=== PATIENT | male | born 2000 | race Caucasian/White ===

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

== ENCOUNTER 2022-01-19 11:51 | Emergency (ER) | payer OTHER, SELFPAY ==
--- NOTE | 2022-01-19 12:20 | HMH.EDUTC ---
[facility] [place] Disposition Clinical Impression: Cellulitis of great toe, left Disposition: Home, Self-Care Condition on Discharge: Good Instructions: Cellulitis Additional Instructions: Rest the extremity, Elevate the extremity as tolerated while you are resting. Take ibuprofen for pain. I sent in a prescription to your pharmacy. Follow up with Dr. Puente (podiatry) for a recheck of your toe. I put in a referral but you need to call her office and schedule an appointment. Follow up with your regular doctor. GO TO THE ER FOR ANY WORSENING SYMPTOMS Prescriptions: Mupirocin [Bactroban 2% Ointment 22gm tube] 1 applicatio TP TID 7 Days #1 gm Transmission Status: Received by [facility] cephALEXin [cephALEXin 500mg capsule] 500 mg PO Q6H 10 Days #40 cap Transmission Status: Received by [facility] Referrals: Emmanuel Humphrey MD [Primary Care Provider] - Forms: Work/School Release Time of Disposition: 12:48 Medical Decision Making - Medical Records Medical records reviewed: No: I reviewed the patient's medical records. - Keven Inquiry Pt receiving controlled substance: No Vital Signs: 01/19/22 12:22 01/19/22 12:53 Temperature 98.6 F 98.6 F Temperature Source Oral Pulse Rate 69 Pulse Rate [Left] 69 Respiratory Rate 16 16 Blood Pressure 119/69 Blood Pressure [Right Arm] 119/69 Blood Pressure Mean [Right Arm] 85 02 Sat by Pulse Oximetry 99 [facility] [place] HPI - General Stated complaint: possible infected left big toe Time Seen by Provider: 01/19/22 12:20 - History of Present Illness Provider Complaint: He states that for the past 1 week he has had left great toe pain and swelling. He originally had an ingrown nail there that was removed by podiatry (Dr. Puente) about 2 months ago. He states that he did fine after the toe nail removal, until he began having his current episode of symptoms. - Related Data Home Medications Medication Instructions Recorded Confirmed montelukast 10 mg tablet 10 mg PO #30 tab 11/01/18 12/09/21 ketotifen fumarate 0.025 % (0.035 drp OPHTHALMIC 10/25/20 12/09/21 %) eye drops levocetirizine 5 mg tablet 5 mg PO DAILY tab 10/25/20 12/09/21 sertraline 50 mg tablet 50 mg PO tab 12/09/21 12/09/21 Previous Rx's Medication Instructions Recorded bupropion HCl 150 mg 24 hr tablet, 150 mg PO DAILY #30 tab 12/01/21 extended release hydroxyzine pamoate 25 mg capsule 25 mg PO DAILY #30 cap 12/01/21 mupirocin 2 % topical ointment 1 applic TP BID 21 Days #15 g 12/09/21 Ondansetron [Zofran 4mg ODT] 4 mg PO TIDP PRN #12 tab 12/25/21 Mupirocin [Bactroban 2% Ointment 1 applicatio TP TID 7 Days #1 gm 01/19/22 22gm tube] cephALEXin [cephALEXin 500mg 500 mg PO Q6H 10 Days #40 cap 01/19/22 capsule] Allergies Allergy/AdvReac Type Severity Reaction Status Date / Time No Known Allergies Allergy Verified 01/19/22 12:25 [facility] History - Hepatitis A Screen Attestation statement:: This patient has been screened for Hepatitis A risk factors. I have reviewed the patient's past medical history: Yes 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: Reports:: Anxiety, Asthma, Depression Denies:: Diabetes Mellitus Type 1, Diabetes Mellitus Type 2, MRSA Other 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: Reports: Sinus Problems Comment: ADHD Other Surgeries: Yes: No Previous Surgery Amputation: No Fractures: No - Social History Smoking Status: Never smoker Alcohol Intake: never Alcohol Intake Frequency:: 0-2 drinks per day Substance Use Type: denies use Occupational Status: other Household Members: family - Psychiatric History Pschychiatric History:: Reports:: Anxiety, Attention Deficit Disorder, Depression Family Hx:: Diabetes ROS Obtained: Yes All systems reviewed & no additional complaints - Constitutional Constitutional: Denies chills, Denies fever(s), Denies poor appetite, Denies malaise - Musculoskeletal Musculoskeletal: Denies joint pain - Integumentary/Breasts Skin/Breast: Re
[2022-01-19 12:22] VITALS: BP 119/69; PULSE 69; RESP 16; TEMP 37; O2SAT 99; BMI 16.9
[2022-01-19 12:53] VITALS: BP 119/69; PULSE 69; RESP 16; TEMP 37
== END 2022-01-19 12:54 | disposition home or self-care (01) ==
PROVIDERS: Emergency Provider Nurse Practitioner Family; PCP Emergency Medicine
DX: M79.675 Pain in left toe(s) (principal); L03.032 Cellulitis of left toe; J45.909 Unspecified asthma, uncomplicated; F98.8 Other specified behavioral and emotional disorders with onset usually occurring in childhood and adolescence; F32.A Depression, unspecified; F41.9 Anxiety disorder, unspecified; Z83.3 Family history of diabetes mellitus
CPT/HCPCS: 99213; G0463

== ENCOUNTER 2022-03-27 16:01 | Emergency (ER) | payer OTHER, SELFPAY ==
[2022-03-27 17:16] VITALS: BP 127/71; PULSE 81; RESP 18; TEMP 36.6; O2SAT 99; BMI 18.3
--- NOTE | 2022-03-27 17:27 | EXP.UTC ---
Discharge Plan Disposition Patient Disposition: Home, Self-Care Condition: Good Prescriptions Prescriptions: New methocarbamol 500 mg tablet 500 mg PO TID PRN (Reason: muscle spasm) Qty: 15 0RF No Action montelukast 10 mg tablet 10 mg PO Qty: 30 levocetirizine 5 mg tablet 5 mg PO DAILY ketotifen fumarate 0.025 % (0.035 %) drops OPHTHALMIC mupirocin 2 % ointment 1 applic TP BID 21 Days Qty: 15 1RF Rx Instructions: Apply to affected area up to twice daily ondansetron 4 MG tablet,disintegrating 4 mg PO TIDP PRN (Reason: Nausea) Qty: 12 0RF mupirocin 22 GM ointment 1 applicatio TP TID 7 Days Qty: 1 0RF Referrals Follow up/Referrals: Emmanuel Humphrey MD [Primary Care Provider] - See instructions Activity Restrictions/Add. Instructions Additional Instructions/Restrictions: *Ibuprofen odalis 6 hours with meal as needed for pain/inflammation *Not additional anti-inflammatory like motrin, aleve, advil with the above amount of ibuprofen. You can still take Tylenol every 4 hours as needed if you need something else for pain *Ice 20 minutes every 2 hours for the first 48 hours after the initial injury followed by moist heat every 20 minutes 3-4 times a day to affected area *Muscle relaxer every 8 hours as needed for muscle spasms but remember, it WILL cause drowsiness You cannot take it and drive, operate machinery or care for small children. *Keep this area active, no movement leads to more stiffness, However take it easy and avoid heavy lifting pushing or pulling *Follow up with you family doctor if no improvement for further treatment Clinical Impressions Clinical Impression: Muscle spasm Instructions Patient Instructions: DI for Muscle Spasm, Methocarbamol Discharge ED Provider: Purvi Vasques [facility] General Stated complaint: AO@03/27 @1200 BACK PAIN Mode of Arrival: Ambulatory Source of Information: Patient and Parent(s) Limitations: No Limitations Time Seen by Provider: 03/27/22 17:27 Description of Symptoms (Recalled from Triage Doc. by RN): pt comes in with c/o lower right side back pain. since this am. 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 and started having spasms in the right side of his lower back Denies known injury State that spasms have continued throughout the day and not improved since he got off work Denies loss of control of bowel or bladder Related Data Home Medications Medication Instructions Recorded Confirmed montelukast 10 mg tablet 10 mg PO #30 tabs 11/01/18 12/09/21 ketotifen fumarate 0.025 % (0.035 drp ophthalmic (eye) 10/25/20 12/09/21 %) eye drops levocetirizine 5 mg tablet 5 mg PO DAILY 10/25/20 12/09/21 Previous Rx's Medication Instructions Recorded mupirocin 2 % topical ointment 1 applic topical BID cellulitis 3 12/09/21 weeks #15 grams ondansetron 4 mg disintegrating 4 mg PO TIDP PRN Nausea #12 tabs 12/25/21 tablet mupirocin 2 % topical ointment 1 applicatio topical TID 7 days #1 01/19/22 g methocarbamol 500 mg tablet 500 mg PO TID PRN muscle spasm #15 03/27/22 tabs Allergies Allergy/AdvReac Type Severity Reaction Status Date / Time No Known Allergies Allergy Verified 03/27/22 17:19 Worker's Comp Is this a Worker's Comp case?: No PFSH PFSH Social History Smoking Status: Never smoker alcohol intake: never substance use type: denies use current occupational status: other Travel in the last 8 weeks: None household members: family number of children: 0 ROS Obtained: Yes All syst
[2022-03-27 17:52] VITALS: BP 127/71; PULSE 81; RESP 18; TEMP 36.6
== END 2022-03-27 17:54 | disposition home or self-care (01) ==
PROVIDERS: Emergency Provider Nurse Practitioner; PCP Emergency Medicine
DX: M62.830 Muscle spasm of back (principal)
CPT/HCPCS: 99212; G0463

== ENCOUNTER 2022-04-29 19:20 | Emergency (ER) | payer OTHER, SELFPAY ==
[2022-04-29 20:25] VITALS: BP 131/70; PULSE 68; RESP 18; TEMP 36.9; O2SAT 99; BMI 17.6
[2022-04-29 20:34] LABS: UTC Influenza A Antigen Negative (Negative)
[2022-04-29 20:35] LABS: UTC Influenza B Antigen Negative (Negative)
--- NOTE | 2022-04-29 20:35 | EXP.UTC ---
Discharge Plan Disposition Patient Disposition: Home, Self-Care Condition: Good Prescriptions Prescriptions: New ondansetron 4 mg tablet,disintegrating 4 mg PO Q8H PRN (Reason: nausea and vomiting) Qty: 10 0RF [id number]-fchlgseay-[id number] [Bromfed DM] 2-30-10 mg/5 mL Syrup 10 ml PO Q4H PRN (Reason: Cough) Qty: 240 0RF Referrals Follow up/Referrals: Emmanuel Humphrey MD [Primary Care Provider] - See instructions Activity Restrictions/Add. Instructions Additional Instructions/Restrictions: *Monitor Temp, Over the counter Motrin or Tylenol as directed/as needed Tylenol every 4 hours and Motrin every 6 hours (as long as your family doctor has told you that you can take it) for fever or pain. and straight to ER if unable to lower temp less than 101.0 after medication given *Warm salt water gargles may help to soothe the throat *Throat Lozenges? *Warm fluids like tea with honey may help to soothe the throat? *Sleep elevated *Humidifier/Vaporizer *Bromfed may cause drowsiness. Know how it effects you (your child) before driving, caring for small child, or sending your child to school. Not other antihistamines/allergy medications while taking bromfed Follow up IMMEDIATELY for new or worsening symptoms or no Noticeable improvement over the next 48-72 hours. 911 for difficulty breathing or swallowing Clinical Impressions Clinical Impression: Viral syndrome Stand Alone Forms Stand Alone Forms: Work/School Release Instructions Patient Instructions: DI for Viral Syndrome Discharge ED Provider: Purvi Vasques [facility] General Stated complaint: body aches,stomach pain,nausea,lip pain Mode of Arrival: Ambulatory Source of Information: Patient Limitations: No Limitations Time Seen by Provider: 04/29/22 20:35 Description of Symptoms (Recalled from Triage Doc. by RN): PATIENT C/O BODY ACHES, RUNNY NOSE, AND COUGH X 2 DAYS HEENT Symptoms (Recalled from RN notes): Yes Resp Symptoms (Recalled from RN notes): Yes Skin Symptoms (Recalled from RN notes): No MS Symptoms (Recalled from RN notes): No Functional Status (Recalled from RN notes): WNL History of Present Illness Provider Complaint: Patient states that he hasnt felt well for a couple of days having nausea, cough, nasal congestion body aches and chills State that this morning he was feeling achy and this evening he had a low grade fever States that flu is going around and he was worried he may have it Related Data Previous Rx's Medication Instructions Recorded arhyyrnaypqqdwt-jknrqvmvpemlipi-GS 10 ml PO Q4H PRN Cough #240 mL 04/29/22 2 mg-30 mg-10 mg/5 mL oral syrup (Bromfed DM) ondansetron 4 mg disintegrating 4 mg PO Q8H PRN nausea and 04/29/22 tablet vomiting #10 tabs Allergies Allergy/AdvReac Type Severity Reaction Status Date / Time No Known Allergies Allergy Verified 03/27/22 17:19 Worker's Comp Is this a Worker's Comp case?: No PFSH PFSH 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 (Updated 04/29/22 @ 20:44 by Purvi Vasques APRN) Anxiety Asthma Depression Social History (Updated 04/29/22 @ 20:35 by Sonya Batista RN) Smoking Status: Never smoker alcohol intake: never substance use type: denies use current occupational status: other Travel in the last 8 weeks: None household members: family number of children: 0 ROS Obtained: Yes All systems reviewed & no additional complaints except as documented and Yes Systems reviewed as appropriate & no additional complaints except as documented Constitutional Constitutional: Reports system reviewed and no additional complaints, except as documented, Reports as per HPI, Reports body ache and Reports chills ENT Ears, Nose, Mouth, and Throat: Reports system reviewed and no additional complaints, except as documented, Reports as per HPI, Reports nasal congestion and Reports nasal discharge Cardiovascular Cardiovascular: Reports system reviewed and no additional complaints, e
[2022-04-29 20:47] VITALS: BP 131/70; PULSE 68; RESP 18; TEMP 36.9; O2SAT 99
== END 2022-04-29 20:49 | disposition home or self-care (01) ==
PROVIDERS: Emergency Provider Nurse Practitioner; PCP Emergency Medicine
DX: R11.2 Nausea with vomiting, unspecified (principal); R10.9 Unspecified abdominal pain; R05.9 Cough, unspecified; S00.501A Unspecified superficial injury of lip, initial encounter; M79.10 Myalgia, unspecified site; R51.9 Headache, unspecified; J45.909 Unspecified asthma, uncomplicated; F32.A Depression, unspecified; F41.1 Generalized anxiety disorder; Z79.899 Other long term (current) drug therapy
CPT/HCPCS: 87804; 99213; G0463

== ENCOUNTER 2022-05-19 13:00 | Emergency (ER) | payer OTHER, SELFPAY ==
[2022-05-19 15:15] VITALS: BP 128/76; PULSE 78; RESP 19; TEMP 36.6; O2SAT 100; BMI 17.9
--- NOTE | 2022-05-19 15:32 | EXP.UTC ---
Discharge Plan Disposition Patient Disposition: Home, Self-Care Condition: Good Prescriptions Prescriptions: New azithromycin [Zithromax Z-Escobar] 250 mg tablet See Rx Instructions .ROUTE .COMPLEX 5 Days Qty: 6 0RF Rx Instructions: For 250 mg dose pack: take 500 mg today (day 1), then 250 mg for 4 days (days 2-5) benzonatate 100 mg capsule 100 mg PO TID PRN (Reason: cough) Qty: 15 0RF Referrals Follow up/Referrals: Emmanuel Humphrey MD [Primary Care Provider] - See instructions Activity Restrictions/Add. Instructions Additional Instructions/Restrictions: *Monitor Temp, Over the counter Motrin or Tylenol as directed/as needed Tylenol every 4 hours and Motrin every 6 hours (as long as your family doctor has told you that you can take it) for fever or pain. and straight to ER if unable to lower temp less than 101.0 after medication given *Warm salt water gargles may help to soothe the throat *Throat Lozenges? *Warm fluids like tea with honey may help to soothe the throat? *Sleep elevated *Humidifier/Vaporizer *Bromfed may cause drowsiness. Know how it effects you (your child) before driving, caring for small child, or sending your child to school. Not other antihistamines/allergy medications while taking bromfed Your throat swab was sent for culture. Those results are typically sent to your primary care. Be sure to follow up in 2-3 days with your family doctor/primary care physician if no improvement so they can review those result and treat if necessary. If you don?t have a primary care doctor, I recommend you get one but in the mean time, you will have to return to a walk in clinic Follow up IMMEDIATELY for new or worsening symptoms or no Noticeable improvement over the next 48-72 hours. 911 for difficulty breathing or swallowing Clinical Impressions Clinical Impression: URI (upper respiratory infection) Stand Alone Forms Stand Alone Forms: Work/School Release Instructions Patient Instructions: DI for Sinusitis, Sore Throat Discharge ED Provider: Purvi Vasques [facility] [place] HPI General Stated complaint: fever, MCCONNELL, congestion, sore throat, runny nose Mode of Arrival: Ambulatory Source of Information: Patient and Parent(s) Limitations: No Limitations Time Seen by Provider: 05/19/22 15:33 Description of Symptoms (Recalled from Triage Doc. by RN): PATIENT C/O SORE THROAT, FEVER, CONGESTION, HEADACHE AND SNEEZING SINCE WEDNESDAY HEENT Symptoms (Recalled from RN notes): Yes Resp Symptoms (Recalled from RN notes): No Skin Symptoms (Recalled from RN notes): No MS Symptoms (Recalled from RN notes): No Functional Status (Recalled from RN notes): WNL History of Present Illness Provider Complaint: Patient states that he has been having sore throat sinus congestion and pressure and cough since last Wednesday but got worse in the last couple of days states that today his throat was hurting worse so he came in Related Data Previous Rx's Medication Instructions Recorded azithromycin 250 mg tablet See Rx Instructions PO .COMPLEX 5 05/19/22 (Zithromax Z-Escobar) days #6 tabs benzonatate 100 mg capsule 100 mg PO TID PRN cough #15 caps 05/19/22 Allergies Allergy/AdvReac Type Severity Reaction Status Date / Time No Known Allergies Allergy Verified 05/09/22 14:52 Worker's Comp Is this a Worker's Comp case?: No [facility] Disclaimer: The information contained in this section may have been updated after the patient was seen, as this information can be updated by other users. 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 (Updated 05/19/22 @ 15:51 by Purvi Vasques APRN) Anxiety Asthma Depression Generalized anxiety disorder Social History (Updated 05/19/22 @ 15:30 by Sonya Batista RN) Smoking Status: Never smoker alcohol intake: never substance use type: denies use current occupational status: other Travel in the last 8 weeks: None household members: family number of children: 0 ROS Obtain
[2022-05-19 15:52] VITALS: BP 128/76; PULSE 78; RESP 19; TEMP 36.6; O2SAT 100
== END 2022-05-19 16:00 | disposition home or self-care (01) ==
PROVIDERS: Emergency Provider Nurse Practitioner; PCP Emergency Medicine
DX: J06.9 Acute upper respiratory infection, unspecified (principal)
CPT/HCPCS: 99212

== ENCOUNTER → 2022-06-12 14:11 | Outpatient (CLI) | payer OTHER, SELFPAY | PROVIDERS: PCP Student in an Organized Health Care Education/Training Program; Visit Provider Student in an Organized Health Care Education/Training Program | DX: U07.1 COVID-19 (principal); R11.2 Nausea with vomiting, unspecified; J02.9 Acute pharyngitis, unspecified | CPT/HCPCS: 87070; C9803; U0003; U0005 ==

== ENCOUNTER 2023-05-11 13:30 | Emergency (ER) | payer OTHER, SELFPAY ==
--- NOTE | 2023-05-11 14:19 | EXP.UTC ---
Discharge Plan Disposition Patient Disposition: Home, Self-Care Condition: Good Prescriptions Prescriptions: New azithromycin [Zithromax] 250 mg tablet 250 mg PO UD DOSE PK Qty: 6 0RF Rx Instructions: Take two (2) tablets today, then one (1) tablet days #2 thru #5 [id number]-geederwyk-LG [Bromfed DM] 2-30-10 mg/5 mL Syrup 5 ml PO Q6H PRN (Reason: Cough) Qty: 240 0RF prednisone 10 mg tablet 10 mg PO BID 4 Days Qty: 8 0RF azithromycin [Zithromax] 250 mg tablet 250 mg PO UD DOSE PK Qty: 6 0RF Rx Instructions: Take two (2) tablets today, then one (1) tablet days #2 thru #5 cjhnfayasduozbu-xtrojmfan-IB [Bromfed DM] 2-30-10 mg/5 mL Syrup 5 ml PO Q6H PRN (Reason: Cough) Qty: 240 0RF Referrals Follow up/Referrals: Provider,Referral, MD [Primary Care Provider] - See instructions Activity Restrictions/Add. Instructions Additional Instructions/Restrictions: Drink plenty of fluids. Take tylenol or ibuprofen for pain or fever. Take the medications as directed. Follow up with your regular doctor. GO TO THE ER FOR ANY WORSENING SYMPTOMS Clinical Impressions Clinical Impression: Pharyngitis, Acute viral syndrome Stand Alone Forms Stand Alone Forms: Work/School Release Instructions Patient Instructions: DI for Pharyngitis/Tonsillopharyngitis -- Child, DI for Viral Syndrome Discharge ED Provider: Simon Uriostegui [facility] General Stated complaint: sore throat,losing voice,cough Time Seen by Provider: 05/11/23 14:19 History of Present Illness Provider Complaint: He states that for the past 2 days he has had scratchy throat, chills, body aches and low grade fever. Related Data Previous Rx's Medication Instructions Recorded azithromycin 250 mg tablet 250 mg PO UD DOSE PK #6 tabs 05/11/23 (Zithromax) azithromycin 250 mg tablet 250 mg PO UD DOSE PK #6 tabs 05/11/23 (Zithromax) dkbdjevlxrrjvss-buwwdqhnzpgrxlc-SE 5 ml PO Q6H PRN Cough #240 mL 05/11/23 2 mg-30 mg-10 mg/5 mL oral syrup (Bromfed DM) auchcodyttuiexi-axnlrhfpiabqotd-OP 5 ml PO Q6H PRN Cough #240 mL 05/11/23 2 mg-30 mg-10 mg/5 mL oral syrup (Bromfed DM) prednisone 10 mg tablet 10 mg PO BID 4 days #8 tabs 05/11/23 Allergies Allergy/AdvReac Type Severity Reaction Status Date / Time No Known Allergies Allergy Verified 05/11/23 14:29 [facility] Disclaimer: The information contained in this section may have been updated after the patient was seen, as this information can be updated by other users. 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 (Updated 05/11/23 @ 14:42 by Simon Uriostegui APRN) Anxiety Asthma Depression Generalized anxiety disorder Social History Smoking Status: Never smoker alcohol intake: never substance use type: denies use current occupational status: other Travel in the last 8 weeks: None household members: family number of children: 0 ROS Obtained: Yes All systems reviewed & no additional complaints except as documented Constitutional Constitutional: Reports chills and Reports fever(s) Eyes Eyes: Denies eye discharge ENT Ears, Nose, Mouth, and Throat: Reports as per HPI Cardiovascular Cardiovascular: Denies chest pain Respiratory Respiratory: Denies chest congestion and Reports cough Gastrointestinal Gastrointestingal: Reports nausea; Denies abdominal pain, constipation, cramping, diarrhea or vomiting Musculoskeletal Musculoskeletal: Denies arthralgias Integumentary/Breasts Skin/Breast: Denies rash Neurologic Neurologic: Denies paresthesias Physical Exam General General appearance: alert and in no apparent distress Head Head exam: atraumatic, normocephalic and normal inspection Eye Eye exam: Present normal appearance, PERRL and EOMI ENT ENT exam: Present mucous membranes moist and normal external ear exam Expanded ENT Exam TM/Canal exam: Bilateral TM: erythema and bulging Nose exam: Absent sinus tenderness Mout
[2023-05-11 14:20] VITALS: BP 125/84; PULSE 77; RESP 18; TEMP 37.2; O2SAT 99; BMI 17.5
[2023-05-11 14:49] LABS: UTC Strep Screen (Rapid) Negative (Negative)
[2023-05-11 15:00] VITALS: BP 125/84; PULSE 77; RESP 18; TEMP 37.2; O2SAT 99
== END 2023-05-11 15:00 | disposition home or self-care (01) ==
PROVIDERS: Emergency Provider Nurse Practitioner Family
DX: J02.9 Acute pharyngitis, unspecified (principal); R05.9 Cough, unspecified; R50.9 Fever, unspecified; B34.9 Viral infection, unspecified; J45.909 Unspecified asthma, uncomplicated
CPT/HCPCS: 87880; 99212; 99214; G0463

== ENCOUNTER 2023-06-30 16:21 | Emergency (ER) | payer OTHER, SELFPAY ==
[2023-06-30 16:35] VITALS: BP 131/80; PULSE 90; RESP 18; TEMP 36.7; O2SAT 98; BMI 17.3
--- NOTE | 2023-06-30 16:40 | EXP.UTC ---
Discharge Plan Disposition Patient Disposition: Home, Self-Care Condition: Good Prescriptions Prescriptions: No Action spironolactone 25 mg tablet 25 mg PO BID estradiol 2 mg tablet 2 mg PO BID Referrals Follow up/Referrals: Provider,Referral, MD [Primary Care Provider] - See instructions Activity Restrictions/Add. Instructions Additional Instructions/Restrictions: Drink plenty of fluids. Take tylenol or ibuprofen for pain or fever. Follow up with your regular doctor. GO TO THE ER FOR ANY WORSENING SYMPTOMS His symptoms began yesterday, so his work excuse needs to count for that day too. Clinical Impressions Clinical Impression: Acute viral syndrome Stand Alone Forms Stand Alone Forms: Work/School Release Instructions Patient Instructions: DI for Viral Syndrome Discharge ED Provider: Simon Uriostegui [facility] [place] General Stated complaint: Fever yesterday,feels fine today Time Seen by Provider: 06/30/23 16:40 History of Present Illness Provider Complaint: He states that he started to feel bad and run a fever yesterday. He states that he is feeling better today, but he needs to be checked for influenza. Related Data Home Medications Medication Instructions Recorded Confirmed estradiol 2 mg tablet 2 mg PO BID HRT 06/30/23 06/30/23 spironolactone 25 mg tablet 25 mg PO BID HRT 06/30/23 06/30/23 Allergies Allergy/AdvReac Type Severity Reaction Status Date / Time No Known Allergies Allergy Verified 06/30/23 16:[address] [facility] Disclaimer: The information contained in this section may have been updated after the patient was seen, as this information can be updated by other users. 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 (Updated 06/30/23 @ 17:00 by Simon Uriostegui APRN) Anxiety Asthma Depression Generalized anxiety disorder Social History Smoking Status: Never smoker alcohol intake: never substance use type: denies use current occupational status: other Travel in the last 8 weeks: None household members: family number of children: 0 ROS Obtained: Yes All systems reviewed & no additional complaints except as documented Constitutional Constitutional: Reports chills and Reports fever(s) Eyes Eyes: Denies eye discharge ENT Ears, Nose, Mouth, and Throat: Reports as per HPI Cardiovascular Cardiovascular: Denies chest pain Respiratory Respiratory: Denies chest congestion and Reports cough Gastrointestinal Gastrointestingal: Reports nausea; Denies abdominal pain, constipation, cramping, diarrhea or vomiting Musculoskeletal Musculoskeletal: Denies arthralgias Integumentary/Breasts Skin/Breast: Denies rash Neurologic Neurologic: Denies paresthesias Physical Exam General General appearance: alert and in no apparent distress Head Head exam: atraumatic, normocephalic and normal inspection Eye Eye exam: Present normal appearance, PERRL and EOMI ENT ENT exam: Present normal exam, normal oropharynx, mucous membranes moist, TM's normal bilaterally and normal external ear exam Neck Neck exam: Present normal inspection, full ROM and trachea midline; Absent meningismus or lymphadenopathy Chest Chest inspection: Present normal inspection and symmetric chest wall rise; Absent tenderness Respiratory Respiratory exam: Present normal lung sounds bilaterally; Absent respiratory distress Cardiovascular Cardiovascular exam: Present regular rate and normal rhythm; Absent JVD Abdominal Exam Abdominal exam: Present soft and normal bowel sounds; Absent distention, tenderness or guarding Extremities Exam Extremities exam: Present normal inspection, full ROM and normal capillary refill; Absent calf tenderness Back Exam Back exam: Present normal inspection; Absent tenderness Neurological Exam Neurological exam: Present alert and oriented X3 Psychiatric Psychiatric exam: Present normal affect and normal mood Skin Skin exam: Present warm, dry, intact and normal color Lymphatic Lymphatic Findings: no adenopathy Medical Decision Making Medical Records Medical records reviewed: No I reviewed the patient's medical records. Keven Inquiry Pt receiving controlled substance: No
[2023-06-30 17:12] VITALS: BP 131/80; PULSE 90; RESP 18; TEMP 36.7; O2SAT 98
== END 2023-06-30 17:12 | disposition home or self-care (01) ==
PROVIDERS: Emergency Provider Nurse Practitioner Family
DX: R50.9 Fever, unspecified (principal); B34.9 Viral infection, unspecified
CPT/HCPCS: 99212; 99213; G0463

== ENCOUNTER 2023-09-21 16:56 | Emergency (ER) | payer OTHER, SELFPAY ==
[2023-09-21 17:02] VITALS: BP 124/81; PULSE 78; RESP 18; TEMP 36.8; O2SAT 100; BMI 17.6
--- NOTE | 2023-09-21 17:25 | EXP.UTC ---
Discharge Plan Disposition Patient Disposition: Home, Self-Care Condition: Good Prescriptions Prescriptions: New ondansetron 4 mg tablet,disintegrating 4 mg PO Q8H PRN (Reason: nausea and vomiting) Qty: 10 0RF No Action spironolactone 25 mg tablet 25 mg PO BID estradiol 2 mg tablet 2 mg PO BID progesterone micronized 100 mg capsule 100 mg PO DAILY Patient Comments: TAKE 1 CAPSULE BY MOUTH ONCE DAILY Referrals Follow up/Referrals: Provider,Referral, MD [Primary Care Provider] - See instructions Activity Restrictions/Add. Instructions Additional Instructions/Restrictions: Drink extra fluids with and between meals. If you have difficulty drinking, try very small amounts of water or suck on ice chips. ? Avoid fruit juices, as these do not replace minerals and can actually increase diarrhea. ? Children and adults can use sports drinks to replenish electrolytes. Younger children and infants should use products formulated for children, like oral rehydration solutions. ? Eat food in small amounts and let your stomach recover. ? Get lots of rest. You may feel tired or weak. ? No greasy or fried foods for the next 24-48 hours BRAT diet Bananas Rice Apples and Ruch ? Make sure to drink plenty of liquids ? Return if needed ? Straight to ER if any life threatening symptoms ? Zofran as prescribed ? Follow up with family doctor in the next 48-72 hours if no improvement or any worsening of symptoms Clinical Impressions Clinical Impression: Acute viral syndrome Stand Alone Forms Stand Alone Forms: Work/School Release Instructions Patient Instructions: DI for Nausea -- Adult, DI for Vomiting -- Adult Discharge ED Provider: Purvi Vasques [facility] General Stated complaint: weak, vomiting Mode of Arrival: Ambulatory Source of Information: Patient Limitations: No Limitations Time Seen by Provider: 09/21/23 17:26 Description of Symptoms (Recalled from Triage Doc. by RN): Pt's symptoms are vomiting, cough, chills, fatrigue, and feels like had a very. HEENT Symptoms (Recalled from RN notes): No Resp Symptoms (Recalled from RN notes): No Skin Symptoms (Recalled from RN notes): No MS Symptoms (Recalled from RN notes): No Functional Status (Recalled from RN notes): n/s History of Present Illness Provider Complaint: Patient states that today at work he started feeling achy, tired, Nausea and started having vomiting States that he vomited several times and had to leave work so he came in to get checked to make sure he didnt have flu or something unsure if he may have been exposed to stomach bug Related Data Home Medications Medication Instructions Recorded Confirmed estradiol 2 mg tablet 2 mg PO BID HRT 06/30/23 09/21/23 spironolactone 25 mg tablet 25 mg PO BID HRT 06/30/23 09/21/23 progesterone micronized 100 mg 100 mg PO DAILY 09/21/23 09/21/23 capsule Previous Rx's Medication Instructions Recorded ondansetron 4 mg disintegrating 4 mg PO Q8H PRN nausea and 09/21/23 tablet vomiting #10 tabs Allergies Allergy/AdvReac Type Severity Reaction Status Date / Time No Known Allergies Allergy Verified 06/30/23 16:51 Worker's Comp Is this a Worker's Comp case?: No [facility] Disclaimer: The information contained in this section may have been updated after the patient was seen, as this information can be updated by other users. 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 (Updated 09/21/23 @ 17:34 by Purvi Vasques APRN) Generalized anxiety disorder Depression Anxiety Asthma Social History Smoking Status: Never smoker alcohol intake: never substance use type: denies use current occupational status: other Travel in the last 8 weeks: None household members: family number of children: 0 ROS Obtained: Yes All systems reviewed & no additional complaints except as documented and Yes Systems reviewed as appropriate & no additional complaints except as documented Constitutional Constitutional: Reports system reviewed and no additional complaints, except as documented, Reports as per HPI, Reports body ache, Reports chills and Reports fatigue ENT Ears, Nose, Mouth, and Throat: Reports system reviewed and no additional complaints, except as documented and Reports as per HPI Cardiovascular Cardiovascular: Reports system reviewed and no additional complaints, except as documented and Reports as per HPI Respiratory Respiratory: Reports system reviewed and no additional complaints, except as documented and Reports as per HPI Gastrointestinal Gastrointestingal: Reports system reviewed and no additional complaints, except as documented, as per HPI, nausea and vomiting; Denies abdominal pain Endocrine Endocrine: Reports fatigue Physical Exam General General appearance: alert and in no apparent distress ENT ENT exam: Present normal exam, normal oropharynx, mucous membranes moist and TM's normal bilaterally Respiratory Respiratory exam: Present normal lung sounds bilaterally; Absent respiratory distress or wheezes Cardiovascular Cardiovascular exam: Present regular rate, normal rhythm and normal heart sounds Abdominal Exam Abdominal exam: Present soft and normal bowel sounds; Absent distention or tenderness Neurological Exam Neurological exam: Present alert, oriented X3 and normal gait Medical Decision Making Keven Inquiry Pt receiving controlled substance: No Keven was queried for this patient: No Vital Signs: 09/21/23 17:02 Temperature 98.2 F Temperature Source Oral Pulse Rate [Right Radial] 78 Respiratory Rate 18 Blood Pressure [Right Arm] 124/81 Blood Pressure Mean [Right Arm] 95 Blood Pressure Source [Right Arm] Automatic Cuff Blood Pressure Position [Right Arm] Sitting 02 Sat by Pulse Oximetry 100 Oxygen Delivery Method Room Air Lab Data Lab results reviewed: Yes I reviewed the patient's lab results.
[2023-09-21 17:27] LABS: UTC Influenza A Antigen Negative (Negative); UTC Influenza B Antigen Negative (Negative)
[2023-09-21 17:42] VITALS: BP 124/81; PULSE 78; RESP 18; TEMP 36.8; O2SAT 100
== END 2023-09-21 17:42 | disposition home or self-care (01) ==
PROVIDERS: Emergency Provider Nurse Practitioner
DX: R11.2 Nausea with vomiting, unspecified (principal); R53.81 Other malaise; R53.83 Other fatigue; B34.9 Viral infection, unspecified
CPT/HCPCS: 87804; 99212; 99214; G0463

== ENCOUNTER 2023-11-09 17:12 | Emergency (ER) | payer OTHER, SELFPAY ==
[2023-11-09 17:45] VITALS: BP 102/62; PULSE 103; RESP 18; TEMP 36.4; O2SAT 99; BMI 18.3
--- NOTE | 2023-11-09 17:45 | EXP.UTC ---
Discharge Plan Disposition Patient Disposition: Home, Self-Care Condition: Good Prescriptions Prescriptions: New promethazine 25 mg tablet 25 mg PO TID PRN (Reason: nausea and vomiting) Qty: 15 0RF No Action spironolactone 25 mg tablet 25 mg PO BID estradiol 2 mg tablet 2 mg PO BID progesterone micronized 100 mg capsule 100 mg PO DAILY Patient Comments: TAKE 1 CAPSULE BY MOUTH ONCE DAILY Referrals Follow up/Referrals: Provider,Referral, MD [Primary Care Provider] - See instructions Activity Restrictions/Add. Instructions Additional Instructions/Restrictions: Drink plenty of fluids. Take tylenol for pain or fever. Take the medications as directed. Follow up with your regular doctor. GO TO THE ER FOR ANY WORSENING SYMPTOMS The promethazine will make you drowsy, so don't drive or operate heavy machinery after taking it. Clinical Impressions Clinical Impression: Abdominal cramping, Gastroenteritis Instructions Patient Instructions: Viral Gastroenteritis, DI for Viral Gastroenteritis -- Adult, Promethazine Discharge ED Provider: Simon Uriostegui [facility] General Stated complaint: abdominal cramping Time Seen by Provider: 11/09/23 17:45 History of Present Illness Provider Complaint: He states that he has had abdominal cramping and he feels like he is going to have diarrhea. He has had nausea also, but he has not vomited. he denies any fever/chills. He has ate normally today. Related Data Home Medications Medication Instructions Recorded Confirmed estradiol 2 mg tablet 2 mg PO BID HRT 06/30/23 11/09/23 spironolactone 25 mg tablet 25 mg PO BID HRT 06/30/23 11/09/23 progesterone micronized 100 mg 100 mg PO DAILY 09/21/23 11/09/23 capsule Previous Rx's Medication Instructions Recorded promethazine 25 mg tablet 25 mg PO TID PRN nausea and 11/09/23 vomiting #15 tabs Allergies Allergy/AdvReac Type Severity Reaction Status Date / Time No Known Allergies Allergy Verified 11/09/23 17:58 [facility] Disclaimer: The information contained in this section may have been updated after the patient was seen, as this information can be updated by other users. 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 (Updated 11/09/23 @ 18:06 by Simon Uriostegui APRN) Generalized anxiety disorder Depression Anxiety Asthma Social History Smoking Status: Never smoker alcohol intake: never substance use type: denies use current occupational status: other Travel in the last 8 weeks: None household members: family number of children: 0 ROS Obtained: Yes All systems reviewed & no additional complaints except as documented Constitutional Constitutional: Denies chills, Denies fever(s) and Reports poor appetite ENT Ears, Nose, Mouth, and Throat: Denies dizziness and Denies sore throat Cardiovascular Cardiovascular: Denies dyspnea Respiratory Respiratory: Denies chest congestion, Denies cough and Denies dyspnea Gastrointestinal Gastrointestingal: Reports as per HPI, cramping and nausea; Denies abdominal pain, constipation, diarrhea, hematochezia or vomiting Musculoskeletal Musculoskeletal: Denies arthralgias Integumentary/Breasts Skin/Breast: Denies rash Neurologic Neurologic: Denies dizziness Physical Exam General General appearance: alert and in no apparent distress Head Head exam: atraumatic and normocephalic Eye Eye exam: Present normal appearance, PERRL and EOMI ENT ENT exam: Present normal exam, normal oropharynx, mucous membranes moist, TM's normal bilaterally and normal external ear exam Neck Neck exam: Present normal inspection, full ROM and trachea midline; Absent tenderness, meningismus or lymphadenopathy Chest Chest inspection: Present normal inspection and symmetric chest wall rise; Absent tenderness, rash or abscess Respiratory Respiratory exam: Present normal lung sounds bilaterally; Absent respiratory distress, wheezes or stridor Cardiovascular Cardiovascular exam: Present regular rate and normal rhythm; Absent irregular rhythm, systolic murmur, diastolic murmur or JVD Abdominal Exam Abdominal exam: Present soft and hyperactive bowel sounds; Absent distention, tenderness, guarding, rebound, rigidity, psoas sign, obturator sign, heel tap sign, Bang's sign, Rovsing's sign or tenderness at McBurney's Point Extremities Exam Extremities exam: Present normal inspection and full ROM; Absent tenderness Back Exam Back exam: Present normal inspection and full ROM; Absent tenderness, CVA tenderness (R) or CVA tenderness (L) Neurological Exam Neurological exam: Present alert, oriented X3 and CN II-XII intact Psychiatric Psychiatric exam: Present normal affect and normal mood Skin Skin exam: Present warm, dry, intact and normal color Lymphatic Lymphatic Findings: no adenopathy Medical Decision Making Medical Records Medical records reviewed: No I reviewed the patient's medical records. Keven Inquiry Pt receiving controlled substance: No
[2023-11-09 18:08] VITALS: BP 102/62; PULSE 103; RESP 18; TEMP 36.4; O2SAT 99
== END 2023-11-09 18:08 | disposition home or self-care (01) ==
PROVIDERS: Emergency Provider Nurse Practitioner Family
DX: R10.819 Abdominal tenderness, unspecified site (principal); K52.9 Noninfective gastroenteritis and colitis, unspecified; R11.0 Nausea
CPT/HCPCS: 99212; 99214; G0463

== ENCOUNTER 2023-12-11 13:17 | Emergency (ER) | payer OTHER, SELFPAY ==
[2023-12-11 13:25] VITALS: BP 117/81; PULSE 108; RESP 18; TEMP 37.8; O2SAT 98; BMI 18.1
[2023-12-11 13:44] LABS: UTC Strep Screen (Rapid) Negative (Negative)
--- NOTE | 2023-12-11 14:00 | EXP.UTC ---
Discharge Plan Disposition Patient Disposition: Home, Self-Care Condition: Good Prescriptions Prescriptions: New amoxicillin 500 mg tablet 500 mg PO TID 10 Days Qty: 30 0RF methylprednisolone 4 mg Tablets,Dose Pack 4 mg PO DIRECTED 6 Days Qty: 21 0RF Rx Instructions: Take 1 pack as directed for 6 days [id number] [Bromfed DM] 2-30-10 mg/5 mL Syrup 5 ml PO Q6H PRN (Reason: Cough) Qty: 240 0RF No Action spironolactone 25 mg tablet 25 mg PO BID estradiol 2 mg tablet 2 mg PO BID progesterone micronized 100 mg capsule 100 mg PO DAILY Patient Comments: TAKE 1 CAPSULE BY MOUTH ONCE DAILY Referrals Follow up/Referrals: Provider,Referral, MD [Primary Care Provider] - See instructions Activity Restrictions/Add. Instructions Additional Instructions/Restrictions: Drink plenty of fluids. Take tylenol or ibuprofen for pain or fever. Take the medications as directed. Follow up with your regular doctor. GO TO THE ER FOR ANY WORSENING SYMPTOMS Clinical Impressions Clinical Impression: Pharyngitis Stand Alone Forms Stand Alone Forms: Work/School Release Instructions Patient Instructions: Sore Throat, DI for Pharyngitis/Tonsillopharyngitis -- Adult Discharge ED Provider: Simon Uriostegui [facility] [place] General Stated complaint: sore throat congestion cough chills under arm pain Mode of Arrival: Ambulatory Source of Information: Patient Limitations: No Limitations Time Seen by Provider: 12/11/23 13:45 Description of Symptoms (Recalled from Triage Doc. by RN): Pt's symptoms sore throat, coughing, and congestion. HEENT Symptoms (Recalled from RN notes): Yes Resp Symptoms (Recalled from RN notes): No Skin Symptoms (Recalled from RN notes): No MS Symptoms (Recalled from RN notes): No Functional Status (Recalled from RN notes): n/a Related Data Home Medications Medication Instructions Recorded Confirmed estradiol 2 mg tablet 2 mg PO BID HRT 06/30/23 12/11/23 spironolactone 25 mg tablet 25 mg PO BID HRT 06/30/23 12/11/23 progesterone micronized 100 mg 100 mg PO DAILY 09/21/23 12/11/23 capsule Previous Rx's Medication Instructions Recorded amoxicillin 500 mg tablet 500 mg PO TID 10 days #30 tabs 12/11/23 [id number] 5 ml PO Q6H PRN Cough #240 mL 12/11/23 2 mg-30 mg-10 mg/5 mL oral syrup (Bromfed DM) methylprednisolone 4 mg tablets in 4 mg PO DIRECTED 6 days #21 tabs 12/11/23 a dose pack Allergies Allergy/AdvReac Type Severity Reaction Status Date / Time No Known Allergies Allergy Verified 12/11/23 13:36 Worker's Comp Is this a Worker's Comp case?: [facility] Disclaimer: The information contained in this section may have been updated after the patient was seen, as this information can be updated by other users. 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 (Updated 12/11/23 @ 14:27 by Simon Uriostegui APRN) Generalized anxiety disorder Depression Anxiety Asthma Social History Smoking Status: Never smoker alcohol intake: never substance use type: denies use current occupational status: other Travel in the last 8 weeks: None household members: family number of children: 0 ROS Obtained: Yes All systems reviewed & no additional complaints except as documented Constitutional Constitutional: Reports chills and Reports fever(s) Eyes Eyes: Denies eye discharge ENT Ears, Nose, Mouth, and Throat: Reports as per HPI Cardiovascular Cardiovascular: Denies chest pain Respiratory Respiratory: Denies chest congestion and Reports cough Gastrointestinal Gastrointestingal: Reports nausea; Denies abdominal pain, constipation, cramping, diarrhea or vomiting Musculoskeletal Musculoskeletal: Denies arthralgias Integumentary/Breasts Skin/Breast: Denies rash Neurologic Neurologic: Denies paresthesias Physical Exam General General appearance: alert and in no apparent distress Head Head exam: atraumatic, normocephalic and normal inspection Eye Eye exam: Present normal appearance, PERRL and EOMI ENT ENT exam: Present mucous membranes moist and normal external ear exam Expanded ENT Exam TM/Canal exam: Bilateral TM: erythema and bulging Nose exam: Absent sinus tenderness Mouth exam: Present normal external inspection; Absent drooling Teeth exam: Present normal inspection Throat exam: Present tonsillar erythema, tonsillomegaly and tonsillar exudate Neck Neck exam: Present normal inspection, full ROM and trachea midline; Absent tenderness, meningismus or lymphadenopathy Chest Chest inspection: Present normal inspection and symmetric chest wall rise; Absent tenderness Respiratory Respiratory exam: Present normal lung sounds bilaterally; Absent respiratory distress, wheezes or stridor Cardiovascular Cardiovascular exam: Present regular rate and normal rhythm; Absent systolic murmur or diastolic murmur Abdominal Exam Abdominal exam: Present soft and normal bowel sounds; Absent distention, tenderness, guarding, rebound or rigidity Extremities Exam Extremities exam: Present normal inspection and normal capillary refill; Absent calf tenderness Back Exam Back exam: Present normal inspection and full ROM; Absent tenderness, CVA tenderness (R) or CVA tenderness (L) Neurological Exam Neurological exam: Present alert, oriented X3 and CN II-XII intact Psychiatric Psychiatric exam: Present normal affect and normal mood Skin Skin exam: Present warm, dry, intact and normal color Medical Decision Making Medical Records Medical records reviewed: No I reviewed the patient's medical records. Keven Inquiry Pt receiving controlled substance: No Vital Signs: 12/11/23 13:25 Temperature 100.0 F H Temperature Source Oral Pulse Rate [Right Radial] 108 H Respiratory Rate 18 Blood Pressure [Right Arm] 117/81 Blood Pressure Mean [Right Arm] 93 Blood Pressure Source [Right Arm] Automatic Cuff Blood Pressure Position [Right Arm] Sitting 02 Sat by Pulse Oximetry 98 Oxygen Delivery Method Room Air Lab Data Lab results reviewed: Yes I reviewed the patient's lab results. Lab Results 12/11/23 13:34: Strep Scn Rapid Clinic Negative Orders (Tests/Meds): ORDERS Category Date Time Status Strep Screen Confirmation Stat Micro 12/11/23 13:34 Received
[2023-12-11 14:47] VITALS: BP 117/81; PULSE 108; RESP 18; TEMP 37.8; O2SAT 98
== END 2023-12-11 14:47 | disposition home or self-care (01) ==
PROVIDERS: Emergency Provider Nurse Practitioner Family
DX: J02.9 Acute pharyngitis, unspecified (principal); R05.9 Cough, unspecified; R09.81 Nasal congestion
CPT/HCPCS: 87880; 99212; 99214; G0463

== ENCOUNTER 2023-12-13 17:01 | Emergency (ER) | payer OTHER, SELFPAY ==
--- NOTE | 2023-12-13 17:07 | ED_ITS ---
Discharge Plan Disposition Patient Disposition: Home, Self-Care Prescriptions Prescriptions: New benzonatate 100 mg capsule 100 mg PO TID PRN (Reason: cough) 5 Days Qty: 20 0RF prednisone 50 mg tablet 50 mg PO DAILY 5 Days Qty: 5 0RF Rx Instructions: Please begin 1 day after ED visit albuterol sulfate 90 mcg/actuation HFA aerosol inhaler 4 inh inhalation Q4H PRN (Reason: shortness of breath or wheezing) Qty: 8.5 0RF Rx Instructions: 4 puffs every 4 hours for 48 hours then as needed for shortness of breath or wheezing following ondansetron 4 mg tablet,disintegrating 4 mg PO Q6H PRN (Reason: nausea and vomiting) 5 Days Qty: 20 0RF No Action amoxicillin 500 mg tablet 500 mg PO TID 10 Days Qty: 30 0RF methylprednisolone 4 mg Tablets,Dose Pack 4 mg PO DIRECTED 6 Days Qty: 21 0RF Rx Instructions: Take 1 pack as directed for 6 days pziyiuwuljdndur-kgochjchh-SR [Bromfed DM] 2-30-10 mg/5 mL Syrup 5 ml PO Q6H PRN (Reason: Cough) Qty: 240 0RF spironolactone 25 mg tablet 25 mg PO BID estradiol 2 mg tablet 2 mg PO BID progesterone micronized 100 mg capsule 100 mg PO DAILY Patient Comments: TAKE 1 CAPSULE BY MOUTH ONCE DAILY Referrals Follow up/Referrals: Provider,Referral, MD [Primary Care Provider] - See instructions Activity Restrictions/Add. Instructions Additional Instructions/Restrictions: Your symptoms are consistent with an upper respiratory viral infection with reactive airways which is what caused her significant bronchospasm and difficulty catching her breath in the middle of a coughing fit. When that happens please make sure you have your albuterol inhaler on hand but the steroid should significantly improve the symptoms over the next several days. Please take your medications as instructed and return with any significant worsening symptoms. Clinical Impressions Clinical Impression: URI (upper respiratory infection), Asthma exacerbation Stand Alone Forms Stand Alone Forms: Work/School Release Discharge ED Provider: Fabio Tipton General Adult HPI <GREGORIO Patino - Last Filed: 12/13/23 17:08> General Chief complaint: Upper Respiratory Infection Stated complaint: cough, congestion, h/a, upset stomach, sore throat Time Seen by Provider: 12/13/23 17:06 Related Data Home Medications Medication Instructions Recorded Confirmed estradiol 2 mg tablet 2 mg PO BID HRT 06/30/23 12/11/23 spironolactone 25 mg tablet 25 mg PO BID HRT 06/30/23 12/11/23 progesterone micronized 100 mg 100 mg PO DAILY 09/21/23 12/11/23 capsule Previous Rx's Medication Instructions Recorded amoxicillin 500 mg tablet 500 mg PO TID 10 days #30 tabs 12/11/23 aazvomtjmgdvrvv-kozlzngdxpipdvp-DN 5 ml PO Q6H PRN Cough #240 mL 12/11/23 2 mg-30 mg-10 mg/5 mL oral syrup (Bromfed DM) methylprednisolone 4 mg tablets in 4 mg PO DIRECTED 6 days #21 tabs 12/11/23 a dose pack albuterol sulfate 90 mcg/actuation 4 inh inhalation Q4H PRN shortness 12/13/23 aerosol inhaler of breath or wheezing #8.5 grams benzonatate 100 mg capsule 100 mg PO TID PRN cough 5 days #20 12/13/23 caps ondansetron 4 mg disintegrating 4 mg PO Q6H PRN nausea and 12/13/23 tablet vomiting 5 days #20 tabs prednisone 50 mg tablet 50 mg PO DAILY 5 days #5 tabs 12/13/23 Allergies Allergy/AdvReac Type Severity Reaction Status Date / Time No Known Allergies Allergy Verified 12/11/23 13:36 <Fabio Tipton MD - Last Filed: 12/13/23 17:32> History of Present Illness HPI narrative: Patient is a 23-year-old who presents today with multiple complaints. Was recently diagnosed with strep despite negative strep tests. Patient states that he has had sore throat cough nausea vomiting and the reason he presented emerged part today is because he had a coughing fit where he could not stop coughing. Has never had a coughing fit like that in the past. Does carry diagnosis of asthma but has not had an asthma exacerbation anytime recently. Every once in a while wheezes with significant exertion. [facility] <GREGORIO Patino - Last Filed: 12/13/23 17:08> [facility] Disclaimer: The information contained in this section may have been updated after the patient was seen, as this information can be updated by other users. 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 (Updated 12/13/23 @ 17:18 by Fabio Tipton MD) Generalized anxiety disorder Depression Anxiety Asthma Social History Smoking Status: Never smoker alcohol intake: never substance use type: denies use current occupational status: other Travel in the last 8 weeks: None household members: family number of children: 0 <GREGORIO Patino - Last Filed: 12/13/23 17:08> ROS Obtained: Yes Systems reviewed as appropriate & no additional complaints except as documented Physical Exam <GREGORIO Patino - Last Filed: 12/13/23 17:08> General General appearance: alert and in no apparent distress Head Head exam: atraumatic and normal inspection Eye Eye exam: Present normal appearance, PERRL and EOMI ENT ENT exam: Present normal exam, normal oropharynx and mucous membranes moist Neck Neck exam: Present normal inspection, full ROM and trachea midline; Absent lymphadenopathy Chest Chest inspection: Present normal inspection and symmetric chest wall rise Respiratory Respiratory exam: Present normal lung sounds bilaterally; Absent accessory muscle use Cardiovascular Cardiovascular exam: Present regular rate, normal rhythm, normal heart sounds, +S1 and +S2 Abdominal Exam Abdominal exam: Present soft and normal bowel sounds; Absent tenderness, guardin g or rebound Extremities Exam Extremities exam: Present normal inspection and full ROM Neurological Exam Neurological exam: Present alert, oriented X3 and CN II-XII intact Psychiatric Psychiatric exam: Present normal affect and normal mood Skin Skin exam: Present warm, dry and normal color Lymphatic Lymphatic Findings: no adenopathy Medical Decision Making <GREGORIO Patino Last Filed: 12/13/23 17:08> Vital Signs: 12/13/23 17:16 Pulse Rate [Right Brachial] 88 Respiratory Rate 18 Blood Pressure [Right Arm] 144/84 H Blood Pressure Mean [Right Arm] 104 02 Sat by Pulse Oximetry 99 Oxygen Delivery Method Room Air Orders (Tests/Meds): ED MEDICATIONS Generic Name Dose Route Start Last Admin Trade Name Freq PRN Reason Stop Dose Admin Benzonatate 100 mg 12/13/23 17:30 Benzonatate 100mg Capsule PO 01/12/24 17:29 ONCE JENNA Discontinued Medications Generic Name Dose Route Start Last Admin Trade Name Freq PRN Reason Stop Dose Admin Prednisone 60 mg 12/13/23 17:16 Prednisone 20mg Tab PO 12/13/23 17:17 ONCE ONE Medical Decision Narrative: In summary patient is a [age, sex] who presents to the emergency department for evaluation of [complaint]. Patient is [hemodynamically stable/unstable] upon arrival, [febrile/afebrile]. [Unremarkable physical exam, nonfocal exam versus focal remarkable exam]. Differential diagnosis includes [DDx]. Initial workup will be conducted with [hematologic labs, imaging, respiratory swab, describe workup]. Initial interventions include [crystalloid bolus, medications, p.o. challenge, etc.] initial workup reviewed by me [hematologic labs are remarkable for... Imaging remarkable for... Urinalysis remarkable for]. Upon repeat evaluation [patient had acceptable resolution of symptoms, had persistent pain for which additional interventions were conducted (describe interventions), tolerated p.o., was ambulatory, etc.]. Given this [patient is appropriate for discharge at this time and will be discharged with a prescription for... The case was discussed with hospital medicine regarding management and they will admit the patient their service for continued evaluation at this time... Etc.] Places where you can increase complexity: I informally interpreted the patient's chest x-ray or CT read and is remarkable for... Documenting what the shelter monitor shows with rate and rhythm Consideration of test but deferring. Ex: I considered chest x-ray on this patient however given that they have no oxygen requirement and are clear to auscultation all lung mccord will be deferred. Social determinants of health: Given that patient is undomiciled increases complexity. Given that patient has polysubstance abuse compounds all aspects of care <Fabio Tipton MD - Last Filed: 12/13/23 17:32> Keven Inquiry Pt receiving controlled substance: No Vital Signs: 12/13/23 17:16 Pulse Rate [Right Brachial] 88 Respiratory Rate 18 Blood Pressure [Right Arm] 144/84 H Blood Pressure Mean [Right Arm] 104 02 Sat by Pulse Oximetry 99 Oxygen Delivery Method Room Air Orders (Tests/Meds): ED MEDICATIONS Generic Name Dose Route Start Last Admin Trade Name Freq PRN Reason Stop Dose Admin Benzonatate 100 mg 12/13/23 17:30 Benzonatate 100mg Capsule PO 01/12/24 17:29 ONCE JENNA Discontinued Medications Generic Name Dose Route Start Last Admin Trade Name Freq PRN Reason Stop Dose Admin Prednisone 60 mg 12/13/23 17:16 Prednisone 20mg Tab PO 12/13/23 17:17 ONCE ONE Medical Decision Narrative: Very well-appearing 23-year-old presenting today with intense consistent with an upper respiratory infection and reactive airways particularly bronchospasm and a coughing fit. Patient likely will benefit from steroids and treatment for asthma exacerbation. No indication for determine exact etiology of this virus but it is clearly not strep pharyngitis given the constellation of symptoms. Symptomatic care has been prescribed including Zofran albuterol benzonatate and steroids. Return precautions emphasized patient was discharged in stable condition Critical Care <Fabio Tipton MD - Last Filed: 12/13/23 17:32> Critical Care Time Critical Care Time: No
[2023-12-13 17:16] VITALS: BP 144/84; PULSE 88; RESP 18; O2SAT 99; BMI 17.9
[2023-12-13 17:30] VITALS: BP 144/84; PULSE 88; RESP 18; TEMP 36.6; O2SAT 99
[2023-12-13] MEDS: predniSONE 20MG TAB 60 MG PO (17:32)
== END 2023-12-13 17:32 | disposition home or self-care (01) ==
PROVIDERS: Emergency Provider Student in an Organized Health Care Education/Training Program
DX: J45.901 Unspecified asthma with (acute) exacerbation (principal); R51.9 Headache, unspecified; R05.9 Cough, unspecified; R11.0 Nausea; R07.0 Pain in throat; R09.81 Nasal congestion; J06.9 Acute upper respiratory infection, unspecified
CPT/HCPCS: 99283

== ENCOUNTER 2024-01-21 10:09 | Outpatient (CLI) | payer OTHER, SELFPAY | END 2024-01-21 23:59 | disposition home or self-care (01) | LOC: LAB.DROPOF 01-22 09:28 | PROVIDERS: PCP Student in an Organized Health Care Education/Training Program; Visit Provider Student in an Organized Health Care Education/Training Program | DX: U07.1 COVID-19 (principal); J02.9 Acute pharyngitis, unspecified; R05.9 Cough, unspecified; Z20.822 Contact with and (suspected) exposure to COVID-19 | CPT/HCPCS: 87070; 87635 ==

== ENCOUNTER 2024-03-20 13:48 | Outpatient (CLI) | payer OTHER, SELFPAY ==
--- NOTE | 2024-03-20 13:53 | XR_ITS ---
FINAL REPORT CLINICAL HISTORY: trauma, FALL YESTERDAY COMPARISON: None FINDINGS: LEFT KNEE: Three views of the left knee were obtained. There is no acute fracture or dislocation. Visualized joint spaces are normally aligned. There is no joint effusion. Soft tissues are unremarkable. IMPRESSION: No acute bony abnormality. Reviewed, Interpreted and Dictated by Compa Mcnair III, MD Transcribed by Leelee Werner Authenticated and [facility]
== END 2024-03-20 23:59 | disposition home or self-care (01) ==
LOC: RAD 13:49
PROVIDERS: PCP Family Medicine; Visit Provider Family Medicine
DX: M25.562 Pain in left knee (principal); S89.92XA Unspecified injury of left lower leg, initial encounter
CPT/HCPCS: 73562

== ENCOUNTER 2024-04-12 15:05 | Emergency (ER) | payer OTHER, SELFPAY ==
[2024-04-12 16:17] VITALS: BP 123/58; PULSE 81; RESP 20; TEMP 36.9; O2SAT 98; BMI 19.6
[2024-04-12 16:30] LABS: UTC Strep Screen (Rapid) Negative (Negative)
--- NOTE | 2024-04-12 16:35 | EXP.UTC ---
Discharge Plan Disposition Patient Disposition: Home, Self-Care Condition: Good Prescriptions Prescriptions: New nystatin 100,000 unit/mL suspension 4 ml buccal QID 10 Days Qty: 160 0RF Rx Instructions: administer 1/2 of dose in each side of the mouth swish and spit No Action albuterol sulfate [Ventolin HFA] 90 mcg/actuation HFA aerosol inhaler 2 puff inhalation Q4-6H PRN (Reason: Asthma) estradiol valerate 20 mg/mL oil 4 mg IM WEEKLY hydrocortisone [Cortisone (hydrocortisone)] 1 % cream 1 applic topical BID Qty: 28.35 1RF Rx Instructions: apply thin layer to upper eyelids 2x/day for 3 weeks. May apply at same time as applying Ketoconazole cream. ketoconazole 2 % cream 1 applic topical BID Qty: 30 1RF Rx Instructions: apply 2x/day to upper eyelids for 3 weeks fluticasone propionate [Flonase Allergy Relief] 50 mcg/actuation spray,suspension 1 spray intranasal BID Qty: 16 2RF Rx Instructions: administer into each nostril 2x/day levocetirizine [Xyzal] 5 mg tablet 5 mg PO DAILY Qty: 30 2RF spironolactone 25 mg tablet 25 mg PO BID progesterone micronized 100 mg capsule 100 mg PO DAILY Patient Comments: TAKE 1 CAPSULE BY MOUTH ONCE DAILY Referrals Follow up/Referrals: Erick Vragas MD [Primary Care Provider] - See instructions Activity Restrictions/Add. Instructions Additional Instructions/Restrictions: *Monitor Temp, Over the counter Motrin or Tylenol as directed/as needed Tylenol every 4 hours and Motrin every 6 hours (as long as your family doctor has told you that you can take it) for fever or pain. and straight to ER if unable to lower temp less than 101.0 after medication given *Warm salt water gargles may help to soothe the throat *Throat Lozenges? *Warm fluids like tea with honey may help to soothe the throat? *Sleep elevated *Humidifier/Vaporizer Use Nystatin as prescribe swish and spit Your throat swab was sent for culture. Those results are typically sent to your primary care. Be sure to follow up in 2-3 days with your family doctor/primary care physician if no improvement so they can review those result and treat if necessary. If you don?t have a primary care doctor, I recommend you get one but in the mean time, you will have to return to a walk in clinic Follow up IMMEDIATELY for new or worsening symptoms or no Noticeable improvement over the next 48-72 hours. 911 for difficulty breathing or swallowing Clinical Impressions Clinical Impression: Sore throat (viral), Thrush Instructions Patient Instructions: Thrush-Adult, Sore Throat Print Language Print Language: Senegalese Discharge ED Provider: Purvi Vasques [facility] [place] HPI General Stated complaint: sore throat Mode of Arrival: Ambulatory Source of Information: Patient Time Seen by Provider: 04/12/24 16:35 Description of Symptoms (Recalled from Triage Doc. by RN): SORE THROAT, MCCONNELL, WHITE PATCH ON TONGUE HEENT Symptoms (Recalled from RN notes): Yes Resp Symptoms (Recalled from RN notes): No Skin Symptoms (Recalled from RN notes): No MS Symptoms (Recalled from RN notes): No Functional Status (Recalled from RN notes): WNL History of Present Illness Provider Complaint: patient states that for the last couple of days has been having sore throat and headache worried about strep throat, also noticed white patchy area on tongue Related Data Home Medications ?Medication ?Instructions ?Recorded ?Confirmed spironolactone 25 mg tablet 25 mg PO BID HRT 06/30/23 04/12/24 progesterone micronized 100 mg 100 mg PO DAILY 09/21/23 04/12/24 capsule albuterol sulfate 90 mcg/actuation 2 puff inhalation Q4-6H PRN Asthma 03/20/24 04/12/24 aerosol inhaler (Ventolin HFA) estradiol valerate 20 mg/mL 4 mg IM WEEKLY 03/20/24 04/12/24 intramuscular oil Previous Rx's ?Medication ?Instructions ?Recorded fluticasone propionate 50 1 spray intranasal BID #16 grams 03/20/24 mcg/actuation nasal spray,suspension (Flonase Allergy Relief) hydrocortisone 1 % topical cream 1 applic topical BID #28.35 grams 03/20/24 (Cortisone (hydrocortisone)) ketoconazole 2 % topical cream 1 applic topical BID #30 grams 03/20/24 levocetirizine 5 mg tablet (Xyzal) 5 mg PO DAILY #30 tabs 03/20/24 nystatin 100,000 unit/mL oral 4 ml buccal QID 10 days #160 mL 04/12/24 suspension Allergies Allergy/AdvReac Type Severity Reaction Status Date / Time shellfish derived Allergy Unknown Verified 03/20/24 13:14 Worker's Comp Is this a Worker's Comp case?: No [facility] Disclaimer: The information contained in this section may have been updated after the patient was seen, as this information can be updated by other users. 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 (Updated 04/12/24 @ 16:43 by Purvi Vasques APRN) Blepharitis Allergic rhinitis Injury of knee, left Generalized anxiety disorder Depression Anxiety Asthma Social History Smoking Status: Never smoker alcohol intake: never substance use type: denies use current occupational status: other Travel in the last 8 weeks: None household members: family number of children: 0 ROS Obtained: Yes All systems reviewed & no additional complaints except as documented and Yes Systems reviewed as appropriate & no additional complaints except as documented Constitutional Constitutional: Reports system reviewed and no additional complaints, except as documented and Reports as per HPI ENT Ears, Nose, Mouth, and Throat: Reports system reviewed and no additional complaints, except as documented, Reports as per HPI, Reports sore throat and Reports other (white patches on tongue) Cardiovascular Cardiovascular: Reports system reviewed and no additional complaints, except as documented and Reports as per HPI Respiratory Respiratory: Reports system reviewed and no additional complaints, except as documented and Reports as per HPI Gastrointestinal Gastrointestingal: Reports system reviewed and no additional complaints, except as documented and as per HPI Physical Exam General General appearance: alert and in no apparent distress ENT ENT exam: Present mucous membranes moist Expanded ENT Exam Nose exam: Absent sinus tenderness Mouth exam: Present other (white patchy like area noted on tongue) Throat exam: Present tonsillar erythema; Absent tonsillomegaly or tonsillar exudate Respiratory Respiratory exam: Present normal lung sounds bilaterally; Absent respiratory distress or wheezes Cardiovascular Cardiovascular exam: Present regular rate, normal rhythm and normal heart sounds Neurological Exam Neurological exam: Present alert, oriented X3 and normal gait Medical Decision Making Medical Records Screening: Per USPSTF and CDC recommendations, given the prevalence of disease in our region, it is our hospital?s policy to screen for HIV and viral Hepatitis for all patients aged 18 and over and those with ongoing risk factors. Keven Inquiry Pt receiving controlled substance: No Keven was queried for this patient: No Vital Signs: 04/12/24 16:17 Temperature 98.5 F Temperature Source Oral Pulse Rate [Left Radial] 81 Respiratory Rate 20 Blood Pressure [Left Arm] 123/58 L Blood Pressure Mean [Left Arm] 79 02 Sat by Pulse Oximetry 98 Lab Data Lab results reviewed: Yes I reviewed the patient's lab results. Lab Results 04/12/24 16:22: Strep Scn Rapid Clinic Negative Orders (Tests/Meds): ORDERS Category Date Time Status Strep Screen Confirmation Stat Micro 04/12/24 16:22 Received
[2024-04-12 16:49] VITALS: BP 123/58; PULSE 81; RESP 20; TEMP 36.9
== END 2024-04-12 16:53 | disposition home or self-care (01) ==
PROVIDERS: Emergency Provider Nurse Practitioner; PCP Family Medicine
DX: B37.0 Candidal stomatitis (principal); J02.8 Acute pharyngitis due to other specified organisms; J02.9 Acute pharyngitis, unspecified; R51.9 Headache, unspecified
CPT/HCPCS: 87880; 99212; G0381

== ENCOUNTER 2024-06-05 11:18 | Outpatient (CLI) | payer OTHER, SELFPAY ==
[2024-06-05 17:54] LABS: Coronavirus 19, PCR Not Detected (NotDetected); Influenza B, PCR Not Detected (NotDetected)
[2024-06-06 02:51] LABS: Influenza A, PCR Detected (NotDetected)
== END 2024-06-05 23:59 | disposition home or self-care (01) ==
LOC: LAB.DROPOF 06-06 11:18
PROVIDERS: PCP Family Medicine; Visit Provider Family Medicine
DX: J09.X9 Influenza due to identified novel influenza A virus with other manifestations (principal); R53.83 Other fatigue; R68.89 Other general symptoms and signs
CPT/HCPCS: 87636

== ENCOUNTER 2024-06-08 18:21 | Outpatient (CLI) | payer OTHER, SELFPAY ==
--- NOTE | 2024-06-08 19:09 | XR_ITS ---
PROCEDURE INFORMATION: Exam: XR Chest Exam date and time: 06/08/2024 7:00 PM Age: 23 years old Clinical indication: Cough TECHNIQUE: Imaging protocol: Radiologic exam of the chest. Views: 2 views. COMPARISON: CT ABDOMEN PELVIS W CON 05/24/2021 3:55 PM FINDINGS: Lungs: Unremarkable. No consolidation. Pleural spaces: Unremarkable. No pleural effusion. No pneumothorax. Heart/Mediastinum: Unremarkable. No cardiomegaly. Bones/joints: Unremarkable. IMPRESSION: No acute findings. No infiltration
== END 2024-06-08 23:59 | disposition home or self-care (01) ==
LOC: RAD 18:25
PROVIDERS: PCP Family Medicine; Visit Provider Family Medicine
DX: R05.9 Cough, unspecified (principal); B34.9 Viral infection, unspecified; R53.83 Other fatigue; R68.89 Other general symptoms and signs
CPT/HCPCS: 71046

== ENCOUNTER 2024-07-22 11:53 | Emergency (ER) | payer OTHER, SELFPAY ==
[2024-07-22 13:20] VITALS: BP 106/74; PULSE 92; RESP 16; TEMP 36.8; O2SAT 98; BMI 18.8
[2024-07-22 13:31] LABS: UTC Strep Screen (Rapid) Negative (Negative)
--- NOTE | 2024-07-22 13:31 | EXP.UTC ---
Discharge Plan Disposition Patient Disposition: Home, Self-Care Condition: Good Prescriptions Prescriptions: No Action albuterol sulfate [Ventolin HFA] 90 mcg/actuation HFA aerosol inhaler 2 puff inhalation Q4-6H PRN (Reason: Asthma) estradiol valerate 20 mg/mL oil 4 mg IM WEEKLY xofdfywcqbwkrpd-fqjdkxzrj-BL [Bromfed DM] 2-30-10 mg/5 mL syrup 10 ml PO Q6H Qty: 118 0RF bupropion HCl [Wellbutrin XL] 150 mg tablet extended release 24 hr 150 mg PO DAILY Qty: 30 1RF spironolactone 25 mg tablet 25 mg PO BID progesterone micronized 100 mg capsule 100 mg PO DAILY Patient Comments: TAKE 1 CAPSULE BY MOUTH ONCE DAILY Referrals Follow up/Referrals: Erick Vargas MD [Primary Care Provider] - See instructions Activity Restrictions/Add. Instructions Additional Instructions/Restrictions: No sign of a bacterial infection. Likely viral. Viruses can take 7-14 days to run their course. Nasal saline and bulb syringe or nose Malathi to remove nasal drainage to help with nasal congestion. Hard to eat, drink, sleep with nasal congestion so important to keep this cleaned out. Monitor temp. Tylenol or Motrin as needed for pain or fever Encourage fluids, water, Gatorade, Powerade, Pedialyte if infant/toddler/child Warm salt water gargles Warm fluids Sore throat lozenges Sleep elevated Humidifier/vaporizer Follow-up immediately for new or worsening symptoms or no noticeable improvement over the next 48-72 hours. Clinical Impressions Clinical Impression: Upper respiratory infection, viral Instructions Patient Instructions: DI for Viral Upper Respiratory Infection -- Adult Print Language Print Language: Guatemalan Discharge ED Provider: Shayy ([facility])[place] [facility] General Stated complaint: sore throat congestion painful breath Mode of Arrival: Ambulatory Source of Information: Patient Time Seen by Provider: 07/22/24 13:28 Description of Symptoms (Recalled from Triage Doc. by RN): SORE THROAT HEENT Symptoms (Recalled from RN notes): Yes Resp Symptoms (Recalled from RN notes): No Skin Symptoms (Recalled from RN notes): No MS Symptoms (Recalled from RN notes): No Functional Status (Recalled from RN notes): WNL History of Present Illness Provider Complaint: 23-year-old male presents for complaints of a sore throat, congestion, and painful to take a deep breath from coughing. Related Data Home Medications ?Medication ?Instructions ?Recorded ?Confirmed spironolactone 25 mg tablet 25 mg PO BID HRT 06/30/23 07/21/24 progesterone micronized 100 mg 100 mg PO DAILY 09/21/23 07/21/24 capsule albuterol sulfate 90 mcg/actuation 2 puff inhalation Q4-6H PRN Asthma 03/20/24 07/21/24 aerosol inhaler (Ventolin HFA) estradiol valerate 20 mg/mL 4 mg IM WEEKLY 03/20/24 07/21/24 intramuscular oil Previous Rx's ?Medication ?Instructions ?Recorded uqsytzfmkeshoyd-qgiqwkmdurbrlch-PG 10 ml PO Q6H #118 mL 06/05/24 2 mg-30 mg-10 mg/5 mL oral syrup (Bromfed DM) bupropion HCl 150 mg 24 hr tablet, 150 mg PO DAILY #30 tabs 07/20/24 extended release (Wellbutrin XL) Allergies Allergy/AdvReac Type Severity Reaction Status Date / Time shellfish derived Allergy Unknown Verified 06/05/24 14:03 Worker's Comp Is this a Worker's Comp case?: No [facility] Disclaimer: The information contained in this section may have been updated after the patient was seen, as this information can be updated by other users. 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 , [employer]) Blepharitis Allergic rhinitis Injury of knee, left Generalized anxiety disorder Depression Anxiety Asthma Social History , [employer]) Smoking Status: Never smoker alcohol intake: never substance use type: denies use current occupational status: other Travel in the last 8 weeks: None household members: family number of children: 0 Have you lived/traveled outside [place] in past 30 days?: No Contact w/someone who lives/traveled outside US past 30 days?: No Exposure to someone with infectious disease in past 14 days?: No Do you have a fever (greater than 100.4 F or 38 C)?: No Have you tested positive for COVID-19: No Exposed to someone with COVID-19 in past 14 days?: No Do you have a sore throat?: Yes Do you have a cough?: No Do you have any weakness?: No Do you have any diarrhea?: No Are you experiencing any unusual bleeding?: No Do you have any muscle aches/pain?: No Do you have any abdominal pain?: No Are you experiencing loss of taste or smell?: No ROS Obtained: Yes Systems reviewed as appropriate & no additional complaints except as documented Physical Exam General General appearance: alert and in no apparent distress Eye Eye exam: Present normal appearance ENT ENT exam: Present mucous membranes moist and TM's normal bilaterally Expanded ENT Exam Throat exam: Present tonsillar erythema Respiratory Respiratory exam: Present normal lung sounds bilaterally Cardiovascular Cardiovascular exam: Present regular rate and normal rhythm Neurological Exam Neurological exam: Present alert and oriented X3 Skin Skin exam: Present warm and intact Medical Decision Making Medical Records Medical records reviewed: Yes I reviewed the patient's medical records. Screening: Per USPSTF and CDC recommendations, given the prevalence of disease in our region, it is our hospital?s policy to screen for HIV and viral Hepatitis for all patients aged 18 and over and those with ongoing risk factors. Keven Inquiry Pt receiving controlled substance: No Keven was queried for this patient: No Vital Signs: 07/22/24 13:20 Temperature 98.3 F Temperature Source Oral Pulse Rate [Left Radial] 92 H Respiratory Rate 16 Blood Pressure [Left Arm] 106/74 L Blood Pressure Mean [Left Arm] 84 02 Sat by Pulse Oximetry 98 Lab Data Lab results reviewed: Yes I reviewed the patient's lab results. Lab Results 07/22/24 13:23: Strep Scn Rapid Clinic Negative
[2024-07-22 13:40] LABS: UTC Influenza A Antigen Negative (Negative)
[2024-07-22 13:41] LABS: UTC Influenza B Antigen Negative (Negative)
[2024-07-22 13:45] VITALS: BP 106/74; PULSE 92; RESP 16; TEMP 36.8
== END 2024-07-22 13:49 | disposition home or self-care (01) ==
PROVIDERS: Emergency Provider Nurse Practitioner Family; PCP Family Medicine
DX: J06.9 Acute upper respiratory infection, unspecified (principal)
CPT/HCPCS: 87804; 87880; 99213; G0381

== ENCOUNTER 2024-08-17 08:18 | Emergency (ER) | payer SELFPAY ==
[2024-08-17] VITALS (9 sets, daily range): BP systolic 114–168; BP diastolic 77–102; PULSE 107–138; RESP 14–27; TEMP 36.9; O2SAT 98–100; BMI 18.6
--- NOTE | 2024-08-17 08:27 | ECG_ITS ---
APPROVED REPORT Exam: Resting ECG HR:132 bpm ECG Measurements Heart Rate 132 AXES CA 160 P 55 QRSd 98 QRS 49 QT 300 T 46 QTc 378 Conclusion SINUS TACHYCARDIA INCOMPLETE RIGHT BUNDLE BRANCH BLOCK [90+ ms QRS DURATION, TERMINAL R IN V1/V2, 40+ ms S IN I/aVL/V4/V5/V6] ABNORMAL RHYTHM ECG UNCONFIRMED REPORT Electronically signed by : Simon Tipton, 08/17/2024 15:23:54
[2024-08-17 08:37] LABS: Coronavirus 19, PCR Not Detected (NotDetected); Influenza A, PCR Not Detected (NotDetected); Influenza B, PCR Not Detected (NotDetected)
--- NOTE | 2024-08-17 08:54 | CT_ITS ---
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 There is enlargement of the tonsils which may be seen with tonsillitis. No abscess is identified. Larynx is unremarkable. Thyroid gland is unremarkable. There is widespread adenopathy involving the jugular chain and posterior triangles. A left upper posterior triangle lymph node seen on image 41 of series 3 and sagittal image 43 of series 1002 measures 22 x 15 x 24 mm. A right submandibular lymph node on image 43 of series 3 and sagittal image 22 of series 1002 measures 23 x 35 x 14 mm. IMPRESSION: 1. Enlargement of the tonsils without evidence of abscess. 2. Widespread moderate adenopathy in the bilateral neck, greatest in the upper neck. This could be reactive or lymphoproliferative disease. Consider 2 to 3-month. MR follow-up may be considered to limit radiation exposure. This study was performed using automated techniques to achieve radiation exposure as low as reasonably achievable Reviewed, Interpreted and Dictated by Matty De Souza MD Transcribed by Lorena Gasca Authenticated and [facility]
--- NOTE | 2024-08-17 08:56 | ED_ITS ---
Discharge Plan Disposition Patient Disposition: Home, Self-Care Prescriptions Prescriptions: No Action estradiol valerate 20 mg/mL oil 4 mg IM WEEKLY bupropion HCl [Wellbutrin XL] 150 mg tablet extended release 24 hr 150 mg PO DAILY Qty: 30 1RF spironolactone 25 mg tablet 25 mg PO BID Referrals Follow up/Referrals: Erick Vargas MD [Primary Care Provider] - See instructions Activity Restrictions/Add. Instructions Additional Instructions/Restrictions: Your symptoms are all consistent with mono related syndrome. This includes your liver/LFT abnormalities the lymph nodes in your neck and your sore throat. It may take several weeks to improve there is no definitive treatment for this. Please take Tylenol and ibuprofen as needed for your symptoms return to your primary care doctor within a week to make sure that your liver function tests are normalizing and return to the ED with any severe or sudden abdominal pain as mono can predispose you to having splenic rupture which is a very rare but serious complication. Clinical Impressions Clinical Impression: Mononucleosis syndrome, Pharyngitis, Dehydration, moderate, Cervical adenopathy, Abnormal transaminases Print Language Print Language: Ukrainian Discharge ED Provider: Fabio Tipton General Adult HPI General Chief complaint: Upper Respiratory Infection Stated complaint: Sore throat, fever, red urine Time Seen by Provider: 08/17/24 08:41 Mode of Arrival: Ambulatory Source of Information: Patient Description of Symptoms (Recalled from ER Triage Doc. by RN): sore throat,body aches, fever History of Present Illness HPI narrative: Patient is a 23-year-old presenting today with significant sore throat and difficulty swallowing body aches and a fever. Tmax of 100.7. Patient states that he had a sore throat over the last 4 to 5 days and had a sensation as if something were bulging in the back of his throat. Has had difficulty swallowing to me he states that he has not had significant change in the phonation of his voice. But does feel like he is going to choke. No rhinorrhea no cough has had bodyaches and also states that his urine has been balwinder in color. No urine output today. Related Data Home Medications ?Medication ?Instructions ?Recorded ?Confirmed spironolactone 25 mg tablet 25 mg PO BID HRT 06/30/23 08/17/24 estradiol valerate 20 mg/mL 4 mg IM WEEKLY 10/07/24 03/06/25 intramuscular oil Previous Rx's ?Medication ?Instructions ?Recorded bupropion HCl 150 mg 24 hr tablet, 150 mg PO DAILY #30 tabs 07/20/24 extended release (Wellbutrin XL) Allergies Allergy/AdvReac Type Severity Reaction Status Date / Time shellfish derived Allergy Unknown Verified 06/05/24 14:03 [facility] Disclaimer: The information contained in this section may have been updated after the patient was seen, as this information can be updated by other users. 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) Smoking Status: Never smoker alcohol intake: never substance use type: denies use current occupational status: other Travel in the last 8 weeks: None household members: family number of children: 0 Have you lived/traveled outside US in past 30 days?: No Contact w/someone who lives/traveled outside US past 30 days?: No Exposure to someone with infectious disease in past 14 days?: No Do you have a fever (greater than 100.4 F or 38 C)?: Yes Have you tested positive for COVID-19: No Exposed to someone with COVID-19 in past 14 days?: No Do you have a sore throat?: Yes Do you have a cough?: No Do you have any weakness?: No Do you have any diarrhea?: No Are you experiencing any unusual bleeding?: No Do you have any muscle aches/pain?: No Do you have any abdominal pain?: No Are you experiencing loss of taste or smell?: No Other 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 Have you received the Flu Vaccine for this season: No Have you received the Pneumonia Vaccine: No ROS Obtained: Yes All systems reviewed & no additional complaints except as documented Physical Exam General General appearance: alert and in no apparent distress ENT ENT exam: Present other (Significant pharyngeal erythema with some mild exudates left peritonsillar region swelling out of proportion to the right no trismus tolerating secretions well) Respiratory Respiratory exam: Present normal lung sounds bilaterally Cardiovascular Cardiovascular exam: Present tachycardia (Heart rate 140 at rest) Neurological Exam Neurological exam: Present alert and oriented X3 Medical Decision Making Medical Records Screening: Per USPSTF and CDC recommendations, given the prevalence of disease in our region, it is our hospital?s policy to screen for HIV and viral Hepatitis for all patients aged 18 and over and those with ongoing risk factors. Keven Inquiry Pt receiving controlled substance: No Vital Signs: 08/17/24 08:24 08/17/24 08:27 08/17/24 08:30 Temperature 98.4 F Temperature Source Oral Pulse Rate 133 H 138 H Pulse Rate [Right] 137 H Respiratory Rate 22 Blood Pressure 158/98 H 168/102 H Blood Pressure [Right Arm] 162/94 H Blood Pressure Mean [Right Arm] 116 02 Sat by Pulse Oximetry 100 99 99 Oxygen Delivery Method Room Air 08/17/24 08:30 08/17/24 08:53 08/17/24 09:00 Temperature Temperature Source Pulse Rate 129 H Pulse Rate [Right] Respiratory Rate 24 15 27 H Blood Pressure 162/94 H 134/81 134/88 Blood Pressure [Right Arm] Blood Pressure Mean [Right Arm] 02 Sat by Pulse Oximetry 98 Oxygen Delivery Method 08/17/24 09:30 08/17/24 10:00 Temperature Temperature Source Pulse Rate Pulse Rate [Right] Respiratory Rate 21 14 Blood Pressure 129/78 136/79 Blood Pressure [Right Arm] Blood Pressure Mean [Right Arm] 02 Sat by Pulse Oximetry Oxygen Delivery Method Lab Data Lab results reviewed: Yes I reviewed the patient's lab results. Lab Results 08/17/24 08:30: SARS-CoV-2 (PCR) Not detected, Influenza A Untype (PCR) Not detected, Influenza Type B (PCR) Not detected, Group A Strep Rapid Negative 08/17/24 08:58: WBC 18.1 H, RBC 4.70, Hgb 13.6 L, Hct 39.5 L, MCV 84.0, MCH 28.9, MCHC 34.4, RDW 12.6, Plt Count 159, MPV 10.7 H, Neut % (Auto) 24.9 L, L ymph % (Auto) 55.4 H, Real % (Auto) 16.0 H, Eos % (Auto) 1.2, Baso % (Auto) 0.6, Neut # (Auto) 4.5, Lymph # (Auto) 10.0 H, Real # (Auto) 2.9 H, Eos # (Auto) 0.2, Baso # (Auto) 0.1, Sodium 134 L, Potassium 3.9, Chloride 102, Carbon Dioxide 25, Anion Gap 10.9, BUN 8 L, Creatinine 0.70, Estimated Creat Clear 139, Estimated GFR 142, Est GFR ( Amer) 172, Glucose 105 H, Calcium 8.6, Total Bilirubin 1.3, AST 285 H, ALT 253 H, Alkaline Phosphatase 199 H, Total Creatine Kinase 119, Total Protein 7.2, Albumin 4.2, Globulin 3.0, Albumin/Globulin Ratio 1.4, M onoscreen Positive A 08/17/24 08:58 08/17/24 08:58 Orders (Tests/Meds): ED MEDICATIONS Discontinued Medications Generic Name Dose Route Start Last Admin Trade Name Freq PRN Reason Stop Dose Admin Acetaminophen 1,000 mg 08/17/24 08:54 08/17/24 08:58 Acetaminophen 1,000mg/100ml Vial IV 08/17/24 08:55 1,000 mg ONCE ONE Administration Dexamethasone Sodium Phosphate 10 mg 08/17/24 08:54 08/17/24 08:59 Dexamethasone 4mg/Ml 1ml Vial IV 08/17/24 08:55 10 mg ONCE ONE Administration Sodium Chloride 1,000 mls @ 999 mls/hr 08/17/24 09:00 08/17/24 08:58 Sod Chlor 0.9% 1000ml Bag IV 08/17/24 10:00 999 mls/hr .Q1H1M JENNA Administration Iopamidol 75 ml 08/17/24 09:12 08/17/24 09:13 Iopamidol-370 (76%);100ml Bottle IV 08/17/24 09:13 75 ml ONCE ONE Administration Sodium Chloride 10 ml 08/17/24 09:12 08/17/24 09:13 Sodium Chloride 0.9% 10ml Syr (Rad Only) IV 08/17/24 09:13 10 ml ONCE ONE Administration ORDERS Category Date Time Status CT soft tissue neck w con Stat Cat Scan 08/17/24 08:54 Completed CBC w/Auto Diff [Complete Blood Count Auto Diff] Stat Lab 08/17/24 08:58 Results CK [Creatine Kinase] Stat Lab 08/17/24 08:58 Completed CMP [Comprehensive Metabolic Panel] Stat Lab 08/17/24 08:58 Completed HIV Combo Stat Lab 08/17/24 08:58 Received Hepatitis Panel Stat Lab 08/17/24 08:58 Received Monoscreen (Rapid) Stat Lab 08/17/24 08:58 Completed Rapid PCR Covid and Flu A/B Stat Lab 08/17/24 08:30 Completed Strep Scrn Group A (Rapid) Stat Lab 08/17/24 08:30 Completed Strep Screen Confirmation Stat Micro 08/17/24 08:30 Received Medical Decision Narrative: 23-year-old with above history and physical concerning for possible retropharyngeal abscess or peritonsillar abscess. The patient's voice does appear to be mildly muffled to me although he states that it is relatively normal for him. Nonetheless there is some asymmetric soft tissue swelling and the history of this is concerning for a possible abscess as stated above. This could be straightforward viral or bacterial pharyngitis. Steroids will be administered IV fluids administered well in addition to IV Tylenol. Additionally CK will be ordered rule out rhabdomyolysis and a CMP will be used to evaluate for renal function given the balwinder color of urine and decreased urine output. Will reassess after this initial workup is complete including a CT scan with contrast. Reassessment 1007 CT scan was performed which I personally interpreted which shows no evidence of any GRAIN PROCESSOR or retropharyngeal abscess however on radiology read there is extensive lymphadenopathy. Most likely this is viral given the presenting symptoms. There is also LFT abnormalities my experience this is most likely mono but could be other infectious etiology as well. I did an extensive sexual history in this patient he does have sex with men but is never been screened for HIV before acute viral or retroviral pathology could present this way therefore HIV screen as well as acute viral hepatitis panel have been sent. He has never had or done injection drugs. Reassessment 10:37 AM patient's monotest is positive this explains the patient's constellation of symptoms. He has been advised to follow-up with primary care doctor to make sure his LFTs are normalizing. Vital signs have improved patient discharged in stable condition supportive care discussed. Critical Care Critical Care Time Critical Care Time: Yes Attestation: On 08/17/24, the high probability of a clinically significant, sudden or life threatening deterioration of the following system(s) required my full and direct attention, intervention and personal management. The time I documented below is in addition to time spent performing reported procedures but includes the following listed in this critical care notation. Total Time Total Critical Care Time: 35
[2024-08-17] MEDS: 0.9 % SODIUM CHLORIDE 1000ML 1,000 ML 999 ML IV (08:58)
[2024-08-17] MEDS: ACETAMINOPHEN 1,000MG/100ML VIAL 1000 MG IV (08:58)
[2024-08-17] MEDS: DEXAMETHASONE 4MG/ML 1ML VIAL 10 MG IV (08:59)
[2024-08-17 09:11] LABS: Strep Scrn Group A (Rapid) Negative (Negative)
[2024-08-17] MEDS: SODIUM CHLORIDE 0.9% 10ML SYR (RAD ONLY) 10 ML IV (09:13)
[2024-08-17] MEDS: IOPAMIDOL-370 (76%);100ML BOTTLE 75 ML IV (09:13)
[2024-08-17 09:21] LABS: Basophils # 0.1 K/mm3 (0-0.2); Basophils % 0.6 % (0.1-2.0); Eosinophils # 0.2 K/mm3 (0.0-0.4); Eosinophils % 1.2 % (0.1-12.0); Hematocrit 39.5 % (42.0-52.0); Hemoglobin 13.6 g/dL (14.1-18.0); Lymphocytes % 55.4 % (10-50); Mean Corpuscular HGB Conc 34.4 g/dL (31.8-35.4); Mean Corpuscular Hemoglobin 28.9 pg (27.0-31.2); Mean Platelet Volume 10.7 fl (7.4-10.4); Monocytes # 2.9 K/mm3 (0.1-1.0); Neutrophils # 4.5 K/mm3 (1.8-7.8); Neutrophils % 24.9 % (37.0-80.0); Platelet Count 159 K/mm3 (142-424); Red Cell Distribution Width 12.6 % (11.5-17.5); White Blood Count 18.1 K/mm3 (4.8-10.8)
[2024-08-17 09:24] LABS: Alanine Aminotransferase 253 U/L (12-78); Albumin Level 4.2 g/dl (3.5-5.0); Albumin/Globulin Ratio 1.4 (1.1-1.8); Alkaline Phosphatase 199 U/L (38-126); Anion Gap 10.9 mEq/L (5-15); Aspartate Amino Transferase 285 U/L (17-59); Bilirubin,Total 1.3 mg/dl (0.2-1.3); Blood Urea Nitrogen 8 mg/dl (9-20); Calcium 8.6 mg/dl (8.4-10.2); Carbon Dioxide 25 mmol/L (22.0-30.0); Chloride 102 mmol/L (98-107); Creatine Kinase 119 U/L (55-170); Creatinine Clearance Estimated 139 mL/min (50-200); Estimated Glomerular Filt Rate 142 ml/min (>60); GFR (African American) 172 ML/MIN (>60); Glucose 105 mg/dl (74-100); Potassium 3.9 mmoL/L (3.5-5.1); Sodium 134 mmol/L (136-145); Total Protein,Serum 7.2 g/dl (6.3-8.2)
[2024-08-17 09:37] LABS: MANUAL DIFFERENTIAL MANUAL DIFFERENTIAL (MANUAL DIFF)
[2024-08-17 10:28] LABS: Monoscreen (Rapid) Positive (Negative)
[2024-08-17 10:48] LABS: Eosinophils % 1 % (0-3); Lymphocytes % 62 % (10-50); Monocytes % 14 % (2-9); Neutrophils % 23 % (42-76); Platelet Estimate Normal; RBC Morphology Normal; Total Cells Counted 100
[2024-08-17 11:11] LABS: HIV Combo NEGATIVE (Negative)
[2024-08-18 10:15] LABS: HBsAg Screen Negative (Negative); HCV Ab Non Reactive (Non Reactive); Hep A Ab, IGM Negative (Negative); Hep B Core Ab, IgM Negative (Negative)
== END 2024-08-17 10:45 | disposition home or self-care (01) ==
PROVIDERS: Emergency Provider Student in an Organized Health Care Education/Training Program; PCP Family Medicine
DX: B27.90 Infectious mononucleosis, unspecified without complication (principal); J02.9 Acute pharyngitis, unspecified; E86.0 Dehydration; R51.9 Headache, unspecified; R74.01 Elevation of levels of liver transaminase levels
CPT/HCPCS: 70491; 80053; 80074; 82550; 85007; 85025; 85027; 86318; 86803; 87389; 87430; 87636; 93005; 96361; 96374; 96375; 99285; J0131; J1100; J7030; Q9967

== ENCOUNTER 2024-08-20 22:12 | Emergency (ER) | payer SELFPAY ==
[2024-08-21] VITALS (9 sets, daily range): BP systolic 111–132; BP diastolic 68–94; PULSE 70–110; RESP 16–18; TEMP 37.2–38.3; O2SAT 96–99; BMI 19.3
[2024-08-21] MEDS: ACETAMINOPHEN 500MG TAB 1000 MG PO (02:02)
[2024-08-21] MEDS: IBUPROFEN 600 MG TABLET PO (02:02)
--- NOTE | 2024-08-21 03:15 | ED_ITS ---
Discharge Plan Disposition Patient Disposition: Home, Self-Care Condition: Good Prescriptions Prescriptions: No Action estradiol valerate 20 mg/mL oil 4 mg IM WEEKLY bupropion HCl [Wellbutrin XL] 150 mg tablet extended release 24 hr 150 mg PO DAILY Qty: 30 1RF spironolactone 25 mg tablet 25 mg PO BID Referrals Follow up/Referrals: Erick Vargas MD [Primary Care Provider] - See instructions Activity Restrictions/Add. Instructions Additional Instructions/Restrictions: You were evaluated in the ER and are appropriate for discharge at this time. Take Tylenol and ibuprofen at home if needed for pain, fevers. Drink plenty of fluids including Gatorade, Pedialyte, water. Please make an appointment with your primary care doctor for reevaluation in a few days to recheck your symptoms as well as your labs to make sure your liver enzymes are improving. Avoid contact sports or any potential injuries to avoid damage to the spleen. Return to the ER with any new, worsening, or otherwise concerning symptoms. Clinical Impressions Clinical Impression: Mononucleosis, Pharyngitis due to infectious mononucleosis, Transaminitis Print Language Print Language: Thai Discharge ED Provider: Jonel Gutierrez General Adult HPI General Chief complaint: Upper Respiratory Infection Stated complaint: pain in ears,throat sore,poss for Miller Time Seen by Provider: 08/21/24 02:10 Mode of Arrival: Ambulatory Source of Information: Patient Description of Symptoms (Recalled from ER Triage Doc. by RN): Diagnosed with mono on - states he is still having pain in his throat. States he has taken aleve earlier today, but has not taken anything since. Slight fever. History of Present Illness HPI narrative: 23-year-old male known to have mono presents to the ER still complaining of a sore throat. Also complains of the pain is radiating to his ears. Patient reports he has had occasional mild abdominal pain but no significant pain. He is most concerned about the throat and ear. Patient tested positive for mono 4 days ago. Reportedly took Aleve earlier today but no medications since that time. Patient reports no voice changes, discomfort with swallowing but no difficulty swallowing, no difficulty breathing, no chest pain, cough, congestion, vomiting, diarrhea, or any other associated symptoms. Related Data Home Medications ?Medication ?Instructions ?Recorded ?Confirmed spironolactone 25 mg tablet 25 mg PO BID HRT 06/30/23 08/17/24 estradiol valerate 20 mg/mL 4 mg IM WEEKLY 03/20/24 08/17/24 intramuscular oil Previous Rx's ?Medication ?Instructions ?Recorded bupropion HCl 150 mg 24 hr tablet, 150 mg PO DAILY #30 tabs 07/20/24 extended release (Wellbutrin XL) Allergies Allergy/AdvReac Type Severity Reaction Status Date / Time shellfish derived Allergy Unknown Verified 06/05/24 14:03 [facility] Disclaimer: The information contained in this section may have been updated after the patient was seen, as this information can be updated by other users. 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) Smoking Status: Light tobacco smoker alcohol intake: never substance use type: denies use current occupational status: other Travel in the last 8 weeks: None household members: family number of children: 0 Have you lived/traveled outside US in past 30 days?: No Contact w/someone who lives/traveled outside US past 30 days?: No Exposure to someone with infectious disease in past 14 days?: No Do you have a fever (greater than 100.4 F or 38 C)?: No Have you tested positive for COVID-19: No Exposed to someone with COVID-19 in past 14 days?: No Do you have a sore throat?: Yes Do you have a cough?: No Do you have any weakness?: No Do you have any diarrhea?: No Are you experiencing any unusual bleeding?: No Do you have any muscle aches/pain?: No Do you have any abdominal pain?: No Are you experiencing loss of taste or smell?: No Other 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 Have you received the Flu Vaccine for this season: No Have you received the Pneumonia Vaccine: No ROS Obtained: Yes Systems reviewed as appropriate & no additional complaints except as documented Per HPI Physical Exam General General appearance: alert and in no apparent distress Head Head exam: atraumatic and normocephalic Eye Eye exam: Present PERRL and EOMI ENT ENT exam: Present mucous membranes moist and TM's normal bilaterally Expanded ENT Exam Mouth exam: Absent trismus Throat exam: Present tonsillar erythema, tonsillomegaly and tonsillar exudate (Large patches of tonsillar exudate bilaterally spivey-yellow in color) Neck Neck exam: Present normal inspection, full ROM and lymphadenopathy (Mild); Absent tenderness Chest Chest inspection: Present symmetric chest wall rise Respiratory Respiratory exam: Present normal lung sounds bilaterally; Absent respiratory distress, wheezes or stridor Cardiovascular Cardiovascular exam: Present regular rate and normal rhythm Abdominal Exam Abdominal exam: Present soft; Absent distention, tenderness, guarding or rebound Comment: No obvious organomegaly Extremities Exam Extremities exam: Present full ROM Neurological Exam Neurological exam: Present alert and oriented X3; Absent motor sensory deficit Psychiatric Psychiatric exam: Present normal affect and normal mood Skin Skin exam: Present warm and dry Medical Decision Making Medical Records Medical records reviewed: Yes I reviewed the patient's medical records. Screening: Per USPSTF and CDC recommendations, given the prevalence of disease in our region, it is our hospital?s policy to screen for HIV and viral Hepatitis for all patients aged 18 and over and those with ongoing risk factors. MR Comment: Labs on 08/17/2024 were reviewed demonstrating leukocytosis WBC 18.1, patient was positive for mono, negative for strep, also had transaminitis with AST 285, ALT 253, alk phos 199. ER doctor did note mild exudate bilaterally at that time on the tonsils Keven Inquiry Pt receiving controlled substance: No Vital Signs: 08/21/24 00:18 08/21/24 00:30 08/21/24 01:00 Temperature 100.9 F H Temperature Source Oral Pulse Rate 110 H 108 H Pulse Rate [Right Radial] 110 H Respiratory Rate 18 Blood Pressure 120/68 121/80 Blood Pressure [Right Arm] 132/94 H Blood Pressure Mean [Right Arm] 106 Blood Pressure Source [Right Arm] Automatic Cuff Blood Pressure Position [Right Arm] Supine 02 Sat by Pulse Oximetry 98 99 97 Oxygen Delivery Method Room Air 08/21/24 01:30 08/21/24 02:00 08/21/24 02:30 Temperature Temperature Source Pulse Rate 108 H 110 H 110 H Pulse Rate [Right Radial] Respiratory Rate Blood Pressure 111/71 130/87 126/76 Blood Pressure [Right Arm] Blood Pressure Mean [Right Arm] Blood Pressure Source [Right Arm] Blood Pressure Position [Right Arm] 02 Sat by Pulse Oximetry 98 97 97 Oxygen Delivery Method 08/21/24 03:00 08/21/24 03:30 Temperature Temperature Source Pulse Rate 92 H 88 Pulse Rate [Right Radial] Respiratory Rate Blood Pressure 124/75 117/72 Blood Pressure [Right Arm] Blood Pressure Mean [Right Arm] Blood Pressure Source [Right Arm] Blood Pressure Position [Right Arm] 02 Sat by Pulse Oximetry 97 96 Oxygen Delivery Method Lab Data Lab Results 08/21/24 02:56: WBC 14.5 H, RBC 4.46 L, Hgb 12.9 L, Hct 38.1 L, MCV 85.4, MCH 28.9, MCHC 33.9, RDW 12.9, Plt Count 152, MPV 10.2, Neut % (Auto) 37.6, Lymph % (Auto) 52.5 H, Miller % (Auto) 7.2, Eos % (Auto) 0.2, Baso % (Auto) 0.3, Neut # (Auto) 5.5, Lymph # (Auto) 7.6 H, Miller # (Auto) 1.0, Eos # (Auto) 0.0, Baso # (Auto) 0.1, Sodium 132 L, Potassium 3.4 L, Chloride 101, Carbon Dioxide 27, Anion Gap 7.4, BUN 8 L, Creatinine 0.60 L, Estimated Creat Clear 169, Estimated GFR 170, Est GFR ( Amer) 206, Glucose 94, Calcium 8.4, Total Bilirubin 0.8, AST 167 H, ALT 284 H, Alkaline Phosphatase 245 H, Total Protein 7.2, Albumin 3.9, Globulin 3.3 H, Albumin/Globulin Ratio 1.2, Group A Strep Rapid Negative 08/21/24 02:56 08/21/24 02:56 Orders (Tests/Meds): ED MEDICATIONS Discontinued Medications Generic Name Dose Route Start Last Admin Trade Name Freq PRN Reason Stop Dose Admin Acetaminophen 1,000 mg 08/21/24 01:56 08/21/24 02:02 Acetaminophen 500mg Tab PO 08/21/24 01:57 1,000 mg ONCE ONE Administration Ibuprofen 600 mg 08/21/24 01:57 08/21/24 02:02 Ibuprofen 600 Mg Tablet PO 08/21/24 01:58 600 mg ONCE ONE Administration ORDERS Category Date Time Status CBC w/Auto Diff [Complete Blood Count Auto Diff] Stat Lab 08/21/24 02:56 Results CMP [Comprehensive Metabolic Panel] Stat Lab 08/21/24 02:56 Completed Strep Scrn Group A (Rapid) Stat Lab 08/21/24 02:56 Completed Strep Screen Confirmation Stat Micro 08/21/24 02:56 Received Medical Decision Narrative: In summary, this 23-year-old male known to be positive for mono with recent transaminitis which is a comorbidity of current condition presents to the emergency department today with persistent sore throat, ear pain. On initial evaluation patient is hemodynamically stable, febrile with temperature 100.9, tympanic membrane's are normal bilaterally, patient has mild bilateral lymphadenopathy in the cervical chain and has significantly enlarged tonsils with spivey?yellow exudate but the structures are symmetrical without deviation, airway protected, tolerating secretions, no stridor, cardiopulmonary exam benign, abdominal exam benign. Differential diagnosis includes but is not limited to mono, I also considered the possibility of opportunistic strep infection though patient was negative a few days ago, given recent transaminitis will reevaluate for transaminitis, I considered peritonsillar abscess but appreciate no evidence of this since all structures are symmetrical without deviation, also considered retropharyngeal abscess but patient has no pain with movement of the neck or extension of the neck, vitals are similar to what they were when patient was initially diagnosed 4 days ago. With the ear pain I had considered otitis media but have no evidence of this, this is likely referred pain. Based on these concerns, I ordered serum labs, strep swab. Patient received Tylenol, ibuprofen for treatment. Labs personally reviewed demonstrate leukocytosis improved down to 14.5, anemia slightly worsened now 12.9 down from 13.64 days ago, strep negative, AST has improved down to 167 from 285, ALT slightly worse at 284, alkaline phosphatase slightly worse at 245. These are not significant changes and patient's bilirubin is improved and he does not have concerning skin or abdominal findings in the a.m. so I believe these transaminases are nonactionable at this time but need to continue to be monitored. On reassessment patient is resting more comfortably after having been treated with antibiotics and pain medication in the ER. I believe he is appropriate for discharge at this time. He follows with his primary care doctor and I instructed him to follow-up closely with him for reassessment as well as recheck of labs. Patient was given instructions on symptomatic management, follow up instructions, and return precautions for the emergency department. Patient indicated understanding and was discharged in stable condition. Critical Care Critical Care Time Critical Care Time: No
[2024-08-21 03:16] LABS: Basophils # 0.1 K/mm3 (0-0.2); Basophils % 0.3 % (0.1-2.0); Eosinophils % 0.2 % (0.1-12.0); Hematocrit 38.1 % (42.0-52.0); Hemoglobin 12.9 g/dL (14.1-18.0); Lymphocytes # 7.6 K/mm3 (0.7-4.5); Lymphocytes % 52.5 % (10-50); Mean Corpuscular HGB Conc 33.9 g/dL (31.8-35.4); Mean Corpuscular Hemoglobin 28.9 pg (27.0-31.2); Mean Corpuscular Volume 85.4 fl (80-94); Mean Platelet Volume 10.2 fl (7.4-10.4); Monocytes % 7.2 % (1.7-9.3); Neutrophils # 5.5 K/mm3 (1.8-7.8); Neutrophils % 37.6 % (37.0-80.0); Platelet Count 152 K/mm3 (142-424); Red Blood Count 4.46 M/mm3 (4.60-6.20); Red Cell Distribution Width 12.9 % (11.5-17.5); White Blood Count 14.5 K/mm3 (4.8-10.8)
[2024-08-21 03:17] LABS: MANUAL DIFFERENTIAL MANUAL DIFFERENTIAL (MANUAL DIFF)
[2024-08-21 03:22] LABS: Albumin Level 3.9 g/dl (3.5-5.0); Chloride 101 mmol/L (98-107)
[2024-08-21 03:23] LABS: Potassium 3.4 mmoL/L (3.5-5.1); Sodium 132 mmol/L (136-145); Strep Scrn Group A (Rapid) Negative (Negative)
[2024-08-21 03:25] LABS: Blood Urea Nitrogen 8 mg/dl (9-20); Creatinine Clearance Estimated 169 mL/min (50-200); Estimated Glomerular Filt Rate 170 ml/min (>60); GFR (African American) 206 ML/MIN (>60)
[2024-08-21 03:26] LABS: Alanine Aminotransferase 284 U/L (12-78); Albumin/Globulin Ratio 1.2 (1.1-1.8); Alkaline Phosphatase 245 U/L (38-126); Anion Gap 7.4 mEq/L (5-15); Aspartate Amino Transferase 167 U/L (17-59); Bilirubin,Total 0.8 mg/dl (0.2-1.3); Calcium 8.4 mg/dl (8.4-10.2); Carbon Dioxide 27 mmol/L (22.0-30.0); Globulin 3.3 g/dL (1.3-3.2); Glucose 94 mg/dl (74-100); Total Protein,Serum 7.2 g/dl (6.3-8.2)
[2024-08-21 04:11] LABS: Lymphocytes % 50 % (10-50); Monocytes % 8 % (2-9); Neutrophils % 40 % (42-76); Total Cells Counted 100
[2024-08-21 04:12] LABS: Platelet Estimate Normal; RBC Morphology Normal
== END 2024-08-21 04:16 | disposition home or self-care (01) ==
PROVIDERS: Emergency Provider Emergency Medicine; PCP Family Medicine
DX: R50.9 Fever, unspecified (principal); J02.9 Acute pharyngitis, unspecified; R10.9 Unspecified abdominal pain; H92.03 Otalgia, bilateral; R74.01 Elevation of levels of liver transaminase levels; B27.90 Infectious mononucleosis, unspecified without complication; Z72.0 Tobacco use
CPT/HCPCS: 80053; 85007; 85025; 85027; 87430; 99283

== ENCOUNTER 2024-10-22 19:32 | Emergency (ER) | payer SELFPAY ==
[2024-10-22 19:39] VITALS: BP 136/81; PULSE 78; RESP 18; TEMP 37; O2SAT 100; BMI 19.3
--- NOTE | 2024-10-22 19:45 | ED_ITS ---
Discharge Plan Disposition Patient Disposition: Home, Self-Care Chief Complaint: PAIN Prescriptions Prescriptions: No Action estradiol valerate 20 mg/mL oil 4 mg IM WEEKLY bupropion HCl [Wellbutrin XL] 150 mg tablet extended release 24 hr 150 mg PO DAILY Qty: 30 1RF spironolactone 25 mg tablet 25 mg PO BID Referrals Follow up/Referrals: Erick Vargas MD [Primary Care Provider] - See instructions Activity Restrictions/Add. Instructions Additional Instructions/Restrictions: Call your family doctor to establish care for this visit to the emergency department and schedule follow-up as needed to ensure improvement. Take Tylenol 1000 mg every 6 hours (4 times daily) and ibuprofen 400 mg every 6 hours (4 times daily) as needed with food and water to prevent GI upset and kidney damage. Clinical Impressions Clinical Impression: Closed head injury Print Language Print Language: Luxem[place] Discharge ED Provider: Ed Kwan General Adult HPI General Chief complaint: PAIN Stated complaint: AO 10/22/24 1710 hit head Time Seen by Provider: 10/22/24 19:35 Mode of Arrival: Ambulatory Source of Information: Patient Description of Symptoms (Recalled from ER Triage Doc. by RN): patient c/o jaw hurting when he opens it. States he hit his head on the right side at work today around 1710. History of Present Illness HPI narrative: Please note that above description of symptoms, in this electronic medical record under categorization of recalled from ER triage doctor by RN are reflective of an initial nursing assessment, however, is not reflective of my full history and physical exam that was personally taken and clarified. Consequentially, this preceding description of symptoms, which may include the patient's categorized chief complaint in the EMR, do not reflect my personal clinical impression, and the ultimate description of history of present illness and patient stated complaints should be deferred to this section of the note. Unless stated otherwise or congruent with this section of the note, additional signs, symptoms, or incongruence should be interpreted as inaccurate with my clinical impression. Related Data Home Medications ?Medication ?Instructions ?Recorded ?Confirmed spironolactone 25 mg tablet 25 mg PO BID HRT 06/30/23 08/17/24 estradiol valerate 20 mg/mL 4 mg IM WEEKLY 03/20/24 08/17/24 intramuscular oil Previous Rx's ?Medication ?Instructions ?Recorded bupropion HCl 150 mg 24 hr tablet, 150 mg PO DAILY #30 tabs 07/20/24 extended release (Wellbutrin XL) Allergies Allergy/AdvReac Type Severity Reaction Status Date / Time shellfish derived Allergy Unknown Verified 06/05/24 14:03 [facility] Disclaimer: The information contained in this section may have been updated after the patient was seen, as this information can be updated by other users. 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) Smoking Status: Never smoker alcohol intake: never substance use type: denies use current occupational status: other Travel in the last 8 weeks?: None household members: family number of children: 0 Have you lived/traveled outside [place] in past 30 days?: No Contact w/someone who lives/traveled outside [place] past 30 days?: No Exposure to someone with infectious disease in past 14 days?: No Do you have a fever (greater than 100.4 F or 38 C)?: No Have you tested positive for COVID-19?: No Exposed to someone with COVID-19 in past 14 days?: No Do you have a sore throat?: No Do you have a cough?: No Do you have any weakness?: No Do you have any diarrhea?: No Are you experiencing any unusual bleeding?: No Do you have any muscle aches/pain?: No Do you have any abdominal pain?: No Are you experiencing loss of taste or smell?: No Other 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 Have you received the Flu Vaccine for this season: No Have you received the Pneumonia Vaccine: No ROS Obtained: Yes All systems reviewed & no additional complaints except as documented Physical Exam General General appearance: alert Head Head exam: atraumatic and normocephalic Eye Eye exam: Present normal appearance, PERRL and EOMI Neck Neck exam: Present normal inspection, full ROM and trachea midline Respiratory Respiratory exam: Absent respiratory distress, wheezes, stridor, accessory muscle use or prolonged expiratory phase Cardiovascular Cardiovascular exam: Present other (Pulses equal symmetric in upper and lower extremities) Abdominal Exam Abdominal exam: Present soft; Absent distention, tenderness or pulsatile mass Extremities Exam Extremities exam: Absent edema Neurological Exam Neurological exam: Present alert, oriented X3 and CN II-XII intact; Absent motor sensory deficit Skin Skin exam: Present warm and dry; Absent diaphoresis or erythema Medical Decision Making Medical Records Medical records reviewed: Yes I reviewed the patient's medical records. Screening: Per USPSTF and CDC recommendations, given the prevalence of disease in our region, it is our hospital?s policy to screen for HIV and viral Hepatitis for all patients aged 18 and over and those with ongoing risk factors. Keven Inquiry Pt receiving controlled substance: No Keven was queried for this patient: No Vital Signs: 10/22/24 19:39 Temperature 98.6 F Temperature Source Oral Pulse Rate [Left] 78 Respiratory Rate 18 Blood Pressure [Right Arm] 136/81 Blood Pressure Mean [Right Arm] 99 Blood Pressure Source [Right Arm] Automatic Cuff Blood Pressure Position [Right Arm] Sitting 02 Sat by Pulse Oximetry 100 Oxygen Delivery Method Room Air Medical Decision Narrative: 24-year-old male presenting with headache. He states that he got this bad habit from my dad of hitting my head against things when I am stressed. States that a couple hours prior to this he was stressed about home life, work life, hit his head against a metal sign that he compared to a stop sign. No loss of conscious, no vomiting, no change in mental status. States that he is having pain over the site now and made worse when he chews or opens his jaw. On my physical exam, completely normal externally. Bilateral TMs are normal. No signs of depressed or basilar skull fracture. No outward signs of abnormality. Has maximal tenderness over the temporalis muscle, but neurologically intact. Made worse with opening closing jaw. Patient [place] CT head negative. Reassurance offered. Because patient at baseline without signs or symptoms of clinical decompensation, deemed appropriate for discharge. Results were relayed to patient who voiced understanding and were agreeable to outpatient management and follow up. I discussed my clinical impression with patient and answered all questions. At this time, the evidence for any other entities in the differential is insufficient to warrant any further testing or ED observation. This was explained as well. Advisory was given that persistent or worsening symptoms require further evaluation. I confirmed the understanding of this discussion. Blasting Entry Specialist disclaimer Much of this encounter note is an electronic protection mgr spoken language to printed text. Electronic protection mgr of the spoken language may permit errors. Although I have reviewed the note, some errors may still exist. Critical Care Critical Care Time Critical Care Time: No
[2024-10-22 19:52] VITALS: BP 136/81; PULSE 100; RESP 16; TEMP 36.6; O2SAT 99
== END 2024-10-22 19:53 | disposition home or self-care (01) ==
PROVIDERS: Emergency Provider Emergency Medicine; PCP Family Medicine
DX: S09.90XA Unspecified injury of head, initial encounter (principal); R68.84 Jaw pain; W22.8XXA Striking against or struck by other objects, initial encounter
CPT/HCPCS: 99283